=== PATIENT | female | born 1955 | race Caucasian/White ===

== ENCOUNTER 2018-03-02 01:03 | Outpatient (CLI) | payer OTHER, SELFPAY ==
--- NOTE | 2018-03-02 08:17 | DI.MAMMO_ITS ---
SYMPTOMS/DIAGNOSIS: SCREENING, Z12.31 MAMMOGRAM: Mammograms were interpreted according to the usual protocol including computer analysis with CAD system, tomosynthesis and C view imaging. The breast tissue is heterogeneously radiodense, which lowers the sensitivity of the study. There is no dominant mass. There are no suspicious calcifications and there has been no significant interval change when compared with prior images. SUMMARY: No evidence of malignancy, category 1. Yearly screening mammography is recommended. Breast density category C. MQSA ASSESSMENT OF FINDINGS: Negative. Category 1. Patient will receive a letter notifying them of these results. Bi-RADS category C. The breasts are heterogeneously dense, which may obscure small masses.
== END 2018-03-02 01:23 ==
PROVIDERS: PCP Family Medicine; Visit Provider Nurse Practitioner Women's Health
DX: Z12.31 Encounter for screening mammogram for malignant neoplasm of breast (principal)
CPT/HCPCS: 77063; 77067

== ENCOUNTER 2018-10-24 15:44 | Outpatient (REF) | payer BC, SELFPAY ==
--- NOTE | 2018-10-24 15:37 | LIPBX_PTH ---
PATIENT: Micheline Gentile LOC: [facility] U#:[id number] AGE/SX: 63/F ROOM: RE10/24/[address]: Robbin Santiago DO : 1955 BED: DIS: 10/24/2018 SPEC #: [id number] RECD: 10/25/18 12:30 STATUS: GOPI REQ #: [id number] DIONY: 10/24/18 15:[address]: Robbin Santiago DEPT: Surgical Specimen RECD BY: Jaimee Chaparro ENTERED: 10/25/18 12:31 SP TYPE: LIPBX OTHR DR: Ruddy Dorsey MD Tissues: 1 - LIP BIOPSY/RESECTION Procedures: GROSS AND MICRO LEVEL 4 Comments: [id number]
== END 2018-10-24 16:04 ==
LOC: LBN 15:44
PROVIDERS: PCP Family Medicine; Visit Provider Otolaryngology Otolaryngology/Facial Plastic Surgery
DX: L57.0 Actinic keratosis (principal)
CPT/HCPCS: 88305

== ENCOUNTER 2019-05-10 15:06 | Outpatient (REF) | payer BC, SELFPAY | END 2019-05-10 15:26 | LOC: LBN 15:06 | PROVIDERS: PCP Family Medicine; Visit Provider Nurse Practitioner Women's Health | DX: R31.9 Hematuria, unspecified (principal); R10.30 Lower abdominal pain, unspecified | CPT/HCPCS: 87086 ==

== ENCOUNTER 2019-05-11 01:37 | Outpatient (CLI) | payer BC, SELFPAY ==
--- NOTE | 2019-05-11 07:36 | DI.US_ITS ---
EXAM: US PELVIS TRANSVAGINAL CLINICAL HISTORY: lower abdominal pain AND PELVIC AND PERINEAL PAIN,R10.2 TECHNIQUE: Ultrasound performed using standard protocol. Transabdominal and transvaginal exams wer e performed. COMPARISON: No exams were available for comparison FINDINGS: The patient is status post hysterectomy. The transabdominal images are limited by lack of bladder d istention. The kidneys are unremarkable. The ovaries were unable to be visualized. There is no kellee ss evidence of a mass. No free fluid is seen. IMPRESSION: Normal appearing kidneys. The bladder was not well distended and was not evaluated. The ovaries wer e not visualized.
== END 2019-05-11 01:57 ==
PROVIDERS: PCP Family Medicine; Visit Provider Nurse Practitioner Women's Health
DX: R10.2 Pelvic and perineal pain (principal); R10.31 Right lower quadrant pain
CPT/HCPCS: 76830; 76856

== ENCOUNTER 2019-07-28 09:37 | Outpatient (CLI) | payer BC, SELFPAY ==
[2019-07-28 12:00] LABS: ALT 42 U/L (14-59); AST 30 U/L (15-37); Albumin 3.9 g/dL (3.4-5.0); Alkaline Phosphatase 63 U/L (46-116); Anion Gap 7.9 mmol/L (3-11); BUN 16 mg/dL (7-18); Bilirubin, Total 0.4 mg/dL (0.2-1.0); CO2 31.1 mmol/L (21.0-32.0); CREATININE 0.78 mg/dL (0.55-1.02); Calcium 9.1 mg/dL (8.5-10.1); Calculated LDL 142 mg/dL (<100); Chloride 103 mmol/L (98-107); Cholesterol 231 mg/dL (<200); Glucose 95 mg/dL (74-106); HDL Cholesterol 58 mg/dL (40-60); Potassium 4.3 mmol/L (3.5-5.1); Sodium 142 mmol/L (136-145); Total Protein 6.9 g/dL (6.4-8.2); Triglyceride 159 mg/dL (<150)
[2019-07-28 12:11] LABS: Hemoglobin A1C 5.8 % (3.8-5.6)
== END 2019-07-28 09:57 ==
PROVIDERS: PCP Family Medicine; Visit Provider Nurse Practitioner
DX: Z13.6 Encounter for screening for cardiovascular disorders (principal); R61 Generalized hyperhidrosis; Z13.1 Encounter for screening for diabetes mellitus
CPT/HCPCS: 36415; 80053; 80061; 83036

== ENCOUNTER 2020-03-18 13:05 | Outpatient (CLI) | payer BC, SELFPAY ==
[2020-03-20 02:05] LABS: Patient Race White; SARS-CoV-2 RNA Undetected (Undetected); SARS-CoV-2 Specimen Source Nasopharynx
== END 2020-03-18 13:25 ==
PROVIDERS: PCP Family Medicine; Visit Provider Family Medicine
DX: R50.9 Fever, unspecified (principal)
CPT/HCPCS: U0003

== ENCOUNTER 2020-06-12 05:06 | Outpatient (CLI) | payer BC, SELFPAY ==
[2020-06-12 11:17] LABS: ALT 34 U/L (14-59); AST 26 U/L (15-37); Albumin 4.3 g/dL (3.4-5.0); Alkaline Phosphatase 58 U/L (46-116); Anion Gap 9.6 mmol/L (3-11); BUN 17 mg/dL (7-18); Bilirubin, Total 0.6 mg/dL (0.2-1.0); CO2 28.4 mmol/L (21.0-32.0); CREATININE 0.82 mg/dL (0.55-1.02); Calcium 9.4 mg/dL (8.5-10.1); Chloride 104 mmol/L (98-107); Glucose 103 mg/dL (74-106); Potassium 4.1 mmol/L (3.5-5.1); Sodium 142 mmol/L (136-145); Total Protein 7.3 g/dL (6.4-8.2)
[2020-06-12 11:39] LABS: FREE T4 0.84 ng/dL (0.76-1.46)
== END 2020-06-12 05:26 ==
PROVIDERS: PCP Family Medicine
DX: R61 Generalized hyperhidrosis (principal); G47.00 Insomnia, unspecified
CPT/HCPCS: 36415; 80053; 84439; 84443

== ENCOUNTER 2020-08-19 03:08 | Outpatient (CLI) | payer BC, SELFPAY ==
[2020-08-19 10:16] LABS: TSH (W/Ref FT4) 2.57 uIU/mL (0.36-3.74)
== END 2020-08-19 03:09 | disposition home or self-care (01) ==
LOC: LBO 03:08
PROVIDERS: PCP Family Medicine
DX: E03.9 Hypothyroidism, unspecified (principal)
CPT/HCPCS: 36415; 84443

== ENCOUNTER 2020-08-30 15:19 | Outpatient (REF) | payer BC, SELFPAY ==
[2020-08-30 16:32] LABS: Creatinine,Urine 39.06 mg/dL
[2020-08-30 16:34] LABS: Total Volume 2335 ml
[2020-09-09 08:49] LABS: 5-Hydroxyindoleacetic Acid, U 4.2 mg/24 h (<=8.4); Urine Volume 2335 mL
== END 2020-08-30 15:20 | disposition home or self-care (01) ==
LOC: LBN 15:19
PROVIDERS: PCP Family Medicine; Visit Provider Student in an Organized Health Care Education/Training Program
DX: R61 Generalized hyperhidrosis (principal)
CPT/HCPCS: 81050; 82570; 83497

== ENCOUNTER 2020-10-17 09:56 | Outpatient (CLI) | payer BC, SELFPAY ==
--- NOTE | 2020-10-17 10:25 | DI.MAMMO_ITS ---
Exam(s) MAMMO SCREENING EXAM: MAMMO SCREENING CLINICAL HISTORY: screening. TECHNIQUE: Bilateral full field digital CC and MLO mammographic images were obtained with 3D tomosyn thesis and utilizing computer aided detection (CAD). COMPARISON: Prior mammograms dating back to 2010, the most recent being February 2018. FINDINGS: Fibroglandular tissue pattern is dense, this decreasing the sensitivity mammogram for finding in unde rlying lesions. In the right breast there is an asymmetric density slightly medial of center located approximately 3 cm in from the nipple, measuring approximately 1.2 by 1.0 cm on the CC view. Spot compression view u ltrasound recommended. This appears slightly sys spiculated. In the posterior aspect of the opposite-left breast there is an asymmetric density located 7 cm in fr om the nipple, this somewhat equivocal on 3D imaging and evident on prior studies. There are no onur gnant-appearing microcalcification groups in this region or elsewhere in either breast There is no significant architectural distortion nor skin thickening-retraction. IMPRESSION: Moderately dense fibroglandular tissue. Asymmetric density in the right breast as described above wh ich requires further spot compression views and ultrasound rule out ominous nodule at this level. BI-RADS Category 0 - Assessment Incomplete: Need additional imaging evaluation Breast Density - Category C - Heterogeneously dense Breast density Category C or D implies that the patient has dense breast tissue. Dense breast tissue can make it harder to find cancer on a mammogram. Dense breast tissue is also associated with an incr eased risk of breast cancer. This information about the result of the mammogram report was provided to the patient to raise their awareness. Use this report when you speak with the patient about their risks for breast cancer, which includes their family history. At that time, you may recommend additional screening tests (Ultrasoun d or MRI) as these tests may add significant information. A negative radiographic report should not delay biopsy if a dominant or clinically suspicious mass is present. Up to ten percent of cancers are not identified on mammography. A negative report may reinforce clinical impression. Adenosis and dense breasts may obscure an underlying neoplasm. False positive reports average 6 to 10%. Patient will receive a letter notifying them of these results.
== END 2020-10-17 10:16 ==
PROVIDERS: PCP Family Medicine; Visit Provider Nurse Practitioner Family
DX: Z12.31 Encounter for screening mammogram for malignant neoplasm of breast (principal); R92.8 Other abnormal and inconclusive findings on diagnostic imaging of breast
CPT/HCPCS: 77063; 77067

== ENCOUNTER 2020-10-24 01:56 | Outpatient (CLI) | payer BC, SELFPAY ==
--- NOTE | 2020-10-24 14:36 | DI.MAMMO_ITS ---
Exam(s) MG MAMMO SCREEN CALL BACK UNI US BREAST RT COMPLETE EXAM: MG MAMMO SCREEN CALL BACK UNI-RIGHT ALSO COMPLETE RIGHT BREAST ULTRASOUND CLINICAL HISTORY: F/U ABNL RT MAMMO, ASYMMETRIC DENSITY 3 CM FROM NIPPLE ON CC VIEW. TECHNIQUE: Unilateral spot mammographic images were obtained with 3D tomosynthesis and utilizing [place] [employer] puter aided detection (CAD). . Complete right breast Ultrasound was also performed. ALL 4 QUADRANTS WERE SCANNED WELL THE RET ROAREOLAR REGION AND RIGHT AXILLA COMPARISON: Prior mammograms were reviewed. This additional imaging was performed due to findings described on the recent screening mammogram of 10/17/2020. FINDINGS: Additional mammographic views performed todayrender this area less concerning. Ultrasound performed today reveals no evidence of solid or significant cystic lesions in all 4 quadra nts. At the 3 o'clock position there is a slightly prominent duct with no evidence of mass or inspis sated material therein. Scanning of the right axilla reveals a small benign lymph nodes. No significant adenopathy. IMPRESSION: No radiographic evidence of malignancy in the right breast. Appropriate follow-up is repeat right breast mammogram in 3 months. The patient was informed of these findings and recommendations by myself prior to leaving the departm ent today. BI-RADS Category 3 - 3 month - Probably Benign Finding: Recommend follow-up mammography in 3 months Breast Density - Category C - Heterogeneously dense Breast density Category C or D implies that the patient has dense breast tissue. Dense breast tissue can make it harder to find cancer on a mammogram. Dense breast tissue is also associated with an incr eased risk of breast cancer. This information about the result of the mammogram report was provided to the patient to raise their awareness. Use this report when you speak with the patient about their risks for breast cancer, which includes their family history. At that time, you may recommend additional screening tests (Ultrasoun d or MRI) as these tests may add significant information. A negative radiographic report should not delay biopsy if a dominant or clinically suspicious mass is present. Up to ten percent of cancers are not identified on mammography. A negative report may reinforce clinical impression. Adenosis and dense breasts may obscure an underlying neoplasm. False positive reports average 6 to 10%. Patient will receive a letter notifying them of these results.
== END 2020-10-24 02:16 ==
PROVIDERS: PCP Family Medicine; Visit Provider Nurse Practitioner Family
DX: Z12.31 Encounter for screening mammogram for malignant neoplasm of breast (principal); R92.8 Other abnormal and inconclusive findings on diagnostic imaging of breast; N60.41 Mammary duct ectasia of right breast
CPT/HCPCS: 76642; 77063; 77067

== ENCOUNTER 2020-11-19 00:44 | Outpatient (CLI) | payer BC, SELFPAY ==
--- NOTE | 2020-11-19 15:00 | DI.RAD_ITS ---
Exam(s) XR KNEE RT 3V AP,LAT,EDENILSON EXAM: XR KNEE RT 3V AP,LAT,EDENILSON CLINICAL HISTORY: RT KNEE PAIN,M25.561. TECHNIQUE: 2D digital imaging was performed. COMPARISON: No exams were available for comparison FINDINGS: BONES: No acute fracture is present. No bony destructive lesion is seen. JOINTS: The knee is normally aligned. No joint effusion is seen. SOFT TISSUE: Normal. IMPRESSION: Unremarkable radiographs of the right knee. DATA REPOSITORY: RADIATION DOSE DELIVERED:
== END 2020-11-19 01:04 ==
PROVIDERS: Visit Provider Nurse Practitioner Family
DX: M25.562 Pain in left knee; G89.29 Other chronic pain
CPT/HCPCS: 73562

== ENCOUNTER 2020-11-19 02:48 | Outpatient (CLI) | payer BC, SELFPAY ==
[2020-11-19 15:53] LABS: TSH (W/Ref FT4) 2.93 uIU/mL (0.36-3.74)
[2020-11-21 01:14] LABS: Vitamin D 25 Total 36.8 ng/mL (30-100)
== END 2020-11-19 02:49 | disposition home or self-care (01) ==
LOC: LBO 02:48
PROVIDERS: Visit Provider Nurse Practitioner Family
DX: E55.9 Vitamin D deficiency, unspecified (principal); E03.9 Hypothyroidism, unspecified
CPT/HCPCS: 36415; 82306; 84443

== ENCOUNTER 2021-01-28 03:15 | Outpatient (CLI) | payer BC, SELFPAY ==
--- NOTE | 2021-01-28 | DI.MAMMO_ITS ---
Exam(s) MAMMO DIAGNOSTIC UNI EXAM: MAMMO DIAGNOSTIC UNI CLINICAL HISTORY: F/U 3 MO F/U, R92.8. TECHNIQUE: Craniocaudal and mediolateral oblique Full Field Digital Mammography views of the right b reast with Computer Aided Diagnosis followed by Tomosynthesis. COMPARISON: 2010 through the recent exam of October 25 FINDINGS: Mammography/Tomosynthesis: Masses/Architectural Distortion: None seen. Previously questioned area of asymmetry in the medial rig ht breast is not present on the previous exam. Findings are consistent with overlying tissue. Microcalcifictions: No suspicious pleomorphic-type are seen. Skin Thickening/Nipple Retraction: None. IMPRESSION: 1. No evidence of malignancy is noted. 2. Unless there is more urgent need, follow-up screening mammography is recommended, as per [place] [employer] guidelines. BI-RADS Category 1 - Negative Breast Density - Category C - Heterogeneously dense Breast density category C or D implies that the patient has dense breast tissue. Dense breast tissue is very common and is not abnormal but dense breast tissue can make it harder to find cancer on a ma mmogram. Also, dense breast tissue may increase their breast cancer risk. This information about the result of the mammogram report was provided to the patient to raise their awareness. Use this report when you speak with the patient about their risks for breast cancer, which includes their family hist ory. At that time, you may recommend for more screening tests (Ultrasound or MRI) as they might be us eful based on their risk. A negative radiographic report should not delay biopsy if a dominant or clinically suspicious mass is present. Up to ten percent of cancers are not identified on mammography. A negative report may reinforce clinical impression. Adenosis and dense breasts may obscure an underlying neoplasm. False positive reports average 6 to 10%. Patient will receive a letter notifying them of these results.
== END 2021-01-28 03:35 ==
PROVIDERS: Visit Provider Nurse Practitioner Family
DX: R92.8 Other abnormal and inconclusive findings on diagnostic imaging of breast (principal)
CPT/HCPCS: 77061; 77065; G0279

== ENCOUNTER 2021-02-19 01:35 | Outpatient (CLI) | payer BC, SELFPAY ==
--- NOTE | 2021-02-19 07:45 | DI.MRI_ITS ---
Exam(s) MR LOWER JOINT RT WO EXAM: MR LOWER JOINT RT WO CLINICAL HISTORY: Pain ?meniscus tear, M25.561, G89.29. TECHNIQUE: Multiplanar multisequence MRI was performed. COMPARISON: CR XR KNEE RT 3V AP,LAT,EDENILSON from 11/19/2020 CR XR KNEE RT 3V AP,LAT,EDENILSON from 11/19/2020 FINDINGS: BONES: There is no fracture or contusion pattern. Mild subcortical edema in the medial femoral condyl e medial tibial plateau. JOINTS: Articular cartilage is unremarkable. There is a small amount of fluid in the joint space. TENDONS: Extensor mechanism: Unremarkable. Medial retinaculum: Unremarkable. Lateral retinaculum: Unremarkable. Popliteus: Unremarkable. MUSCLES: Unremarkable. MENISCI: There is a tear of the body of the medial meniscus. There also appears to be a tear at the posterior root of the medial meniscus. The lateral meniscus is unremarkable. SOFT TISSUES: Unremarkable. LIGAMENTS: Anterior Cruciate: There is some hyperintense signal seen in the distal aspect of the ACL which may r epresent a partial tear. Posterior Cruciate: Unremarkable. Medial Collateral:Unremarkable. Lateral Collateral: Unremarkable. OTHER: IMPRESSION: 1. Tear of the body and posterior root of the medial meniscus. 2. Findings suspicious for partial tear of the ACL. DATA REPOSITORY:
== END 2021-02-19 01:55 ==
PROVIDERS: Visit Provider Student in an Organized Health Care Education/Training Program
DX: G89.29 Other chronic pain (principal); M25.561 Pain in right knee; S83.241A Other tear of medial meniscus, current injury, right knee, initial encounter
CPT/HCPCS: 73721

== ENCOUNTER 2021-03-31 02:20 | Outpatient (CLI) | payer BC, SELFPAY ==
[2021-03-31 12:24] LABS: Source Nasal/Nares
[2021-03-31 21:45] LABS: COVID-19 PCR Negative (Negative)
== END 2021-03-31 02:21 | disposition home or self-care (01) ==
LOC: LBO 02:20
PROVIDERS: Visit Provider Student in an Organized Health Care Education/Training Program
DX: Z20.822 Contact with and (suspected) exposure to COVID-19 (principal); Z01.818 Encounter for other preprocedural examination
CPT/HCPCS: 87635

== ENCOUNTER 2021-04-02 11:32 | Day surgery (SDC) | payer BC, SELFPAY ==
[2021-04-02] VITALS (10 sets, daily range): BP systolic 101–148; BP diastolic 68–89; PULSE 61–72; RESP 10–23; TEMP 36.2–36.9; O2SAT 96–100; BMI 23.2
--- NOTE | 2021-04-02 10:30 | W.PM.DSUDISC ---
Documented by User: Hollie Crespo 04/02/21 10:53 Discharge Plan Disposition Patient Disposition: HOME Condition: Good Discharge Details Reason For Visit: Right knee medial meniscus tear Attending Provider: Erwin Canales Primary Care Provider: Amalia Healy Home Meds and New Rx's Prescriptions: New acetaminophen 500 mg tablet 500 mg PO Q6H PRN (Reason: pain) Qty: 60 RF: 2 ibuprofen 600 mg tablet 600 mg PO TID PRN (Reason: pain) Qty: 60 RF: 0 hydrocodone-acetaminophen 5-325 mg tablet 1 tab PO Q6H PRN (Reason: pain) Qty: 6 RF: 0 Continued Dialyvite Vitamin D3 Max 1,250 mcg (50,000 unit) tablet 1,250 mcg PO QWEEK RF: 0 estradiol [Estrace] 0.01 % (0.1 mg/gram) cream 1 g vaginal .COMPLEX Qty: 42.5 RF: 4 paroxetine HCl 10 mg tablet 10 mg PO DAILY Qty: 90 RF: 4 lorazepam 0.5 mg tablet 0.5 mg PO bid prn Qty: 90 RF: 1 Discharge Instructions Stand Alone Forms: [facility] Referrals: Erwin Canales MD [ [facility]] - Equipment/Supplies: Partial Weight Bearing Crutches Activity:: Elevate Remove Dressings/Wound Care:: 72 hours Shower/Bathe:: 72 hours Diet:: As Tolerated Discharge Orders Discharge Orders: Discharge Order (Routine); Ordered 04/02/21 Ordered By: Hollie Crespo DS: Diagnosis Discharge Diagnosis (1) Complex tear of medial meniscus of right knee: Status: Acute (2) Internal derangement of right knee: Status: Acute Documented by User: MADINA Casillas 04/02/21 14:10 Discharge Plan Disposition Patient Disposition: HOME Condition: Good Discharge Details Reason For Visit: Right knee medial meniscus tear Attending Provider: Erwin Canales Primary Care Provider: Amalia Healy Home Meds and New Rx's Prescriptions: New acetaminophen 500 mg tablet 500 mg PO Q6H PRN (Reason: pain) Qty: 60 RF: 2 ibuprofen 600 mg tablet 600 mg PO TID PRN (Reason: pain) Qty: 60 RF: 0 hydrocodone-acetaminophen 5-325 mg tablet 1 tab PO Q6H PRN (Reason: pain) Qty: 6 RF: 0 Continued Dialyvite Vitamin D3 Max 1,250 mcg (50,000 unit) tablet 1,250 mcg PO QWEEK RF: 0 estradiol [Estrace] 0.01 % (0.1 mg/gram) cream 1 g vaginal .COMPLEX Qty: 42.5 RF: 4 paroxetine HCl 10 mg tablet 10 mg PO DAILY Qty: 90 RF: 4 lorazepam 0.5 mg tablet 0.5 mg PO bid prn Qty: 90 RF: 1 Discharge Instructions Stand Alone Forms: [facility] Referrals: Erwin Canales MD [ [facility]] - Equipment/Supplies: Partial Weight Bearing Crutches Activity:: Elevate Remove Dressings/Wound Care:: 72 hours Shower/Bathe:: 72 hours Diet:: As Tolerated Discharge Orders Discharge Orders: Discharge Order (Routine); Ordered 04/02/21 Ordered By: Hollie Crespo
[2021-04-02] MEDS: Lactated Ringers 1,000 ML 80 ML IV (12:11)
--- NOTE | 2021-04-02 13:18 | ANES.PREOP_ITS ---
General Info Date of Service Date Performed: 04/02/21 Height: 5 ft Weight: 54 kg Body Mass Index (BMI): 23.2 Surgical Procedure: Operation Date: 04/02/21 14:10 Proposed Procedures Side Surgeon p KNEE arthroscopic partial medial menisectomy Right Erwin Canales MD Meds Allergies and Home Medications Allergies Allergy/AdvReac Type Severity Reaction Status Date / Time Sulfa (Sulfonamide Allergy Severe tongue/mouth Verified 04/02/21 11:48 Antibiotics) swell Penicillins Allergy Unknown Hives Verified 04/02/21 11:48 lactose AdvReac Severe Nausea Verified 04/02/21 11:48 Home Medication Medication Instructions Recorded cholecalciferol (vitamin D3) 1,250 1,250 mcg PO QWEEK 10/15/20 mcg (50,000 unit) tablet estradiol 1 g VAGINAL .COMPLEX #42.5 g 10/15/20 lorazepam 0.5 mg tablet 0.5 mg PO bid prn #90 tab-cap 11/13/20 paroxetine HCl 10 mg tablet 10 mg PO DAILY #90 tab-cap 11/13/20 acetaminophen 500 mg PO Q6H PRN #60 tab 04/02/21 ibuprofen 600 mg PO TID PRN #60 tab 04/02/21 Current Visit Medications: Current Medications Generic Name Dose Route Start Last Admin Trade Name Freq PRN Reason Stop Dose Admin Acetaminophen 650 mg 04/02/21 10:27 Acetaminophen 325 Mg Tab PO Q4H PRN PRN Hydrocodone Bitart/Acetaminophen 0 tab 04/02/21 10:27 Hydrocodone 5/Acetaminophen 325 Tab PO Q3H PRN PRN Pain Ringer's Solution 1,000 mls @ 80 mls/hr 04/02/21 06:00 04/02/21 12:11 IV 05/01/21 23:59 80 mls/hr INFUSION LOIS Administration Cefazolin Sodium/Dextrose 2 gm in 50 mls @ 100 mls/hr 04/02/21 06:00 Ancef Duplex IVPB 05/01/21 23:59 PREOP LOIS IV Miscellaneous Supplies 1 each 04/02/21 06:00 Iv Access IV 05/01/21 23:59 DIRECTED LOIS Sodium Chloride 0 ml 04/02/21 06:00 Normal Saline Flush 10 Ml Syr IV 05/01/21 23:59 PRN PRN Sodium Chloride 0 ml 04/02/21 06:00 Normal Saline 10 Ml Vial IJ 05/01/21 23:59 DIRECTED PRN Sterile Water 0 ml 04/02/21 06:00 Water,Injection,Sterile 10 Ml Vial IJ 05/01/21 23:59 DIRECTED PRN PFSH Active Problems Active Problems: Problem Status Onset Code Anxiety 12/31/12 F41.9 Atrophic vaginitis 06/03/12 N95.2 Dyspareunia 11/20/14 GERD (gastroesophageal reflux disease) K21.9 Ganglion cyst 10/04/17 M67.40 Headache associated with orgasm 09/30/15 G44.82 Hip pain 07/17/14 M25.559 History of osteomyelitis 10/04/17 Z87.39 Migraine without aura and without status migrainosus, not intractable 09/30/15 G43.009 Neoplasm of unspecified nature of bone, soft tissue, and skin 02/22/17 D49.2 Polyp of colon 12/31/12 K63.5 Postural orthostatic tachycardia syndrome 09/30/15 R00.0, I95.1 Night sweats R61 Vitamin D deficiency E55.9 Right knee pain M25.561 Internal derangement of right knee M23.91 Complex tear of medial meniscus of right knee S83.231A Hypothyroidism E03.9 Excessive sweating R61 Chronic diarrhea K52.9 Medical History Medical History Adenomatous colon polyp Anxiety Atrophic vaginitis Chronic diarrhea Dyspareunia in female Excessive sweating GERD (gastroesophageal reflux disease) Hip pain Hypothyroidism Migraine headache without aura Postural orthostatic tachycardia syndrome Per pt. states I get very light headed when I go from sitting to standing, any change of position I get very very dizzy Surgical History Surgical History Abdominal hysterectomy Thinks 1994. Colonoscopy - MAC (06/29/17) Tobacco Smoking/Tobacco Use Status: Never Alcohol Alcohol Intake: current Alcohol intake frequency: a few times a week Alcohol type: wine Substance Use Substance use: Occasionally Substance use type: does not use Prental History History 4 Para 2 Hx # Term Pregnancies Multiple births Hx # Pregnancies Ectopic pregnancies AB induced Hx Number of Living Children AB spontaneous Vital Signs and Lab Results Vital Signs Most Recent Vital Signs in EMR: Most Recent Vital Signs Temp Pulse Resp BP Pulse Ox 36.4 C L 61 16 132/82 99 04/02/21 11:54 04/02/21 11:54 04/02/21 11:54 04/02/21 11:54 04/02/21 11:54 Lab Results Blood Type / Crossmatch: No Data to Display Complete Blood Count: No Data to Display Complete Metabolic Panel: No Data to Display Liver Function Panel: No Data to Display Coagulation Panel: No Data to Display Cardiac Panel: No Data to Display Arterial Blood Gas: No Data to Display Venous Blood Gas: 2 No Data to Display Pancreas Panel: No Data to Display Thyroid Panel: No Data to Display Infectious Disease: Coronavirus (COVID-19)(PCR) Negative (Negative) 03/31/21 11:07 03/31/21 Coronavirus 2019 Source Nasal/Nares 03/31/21 11:07 03/31/21 Blood Cultures: No Data to Display Toxicology Panel: No Data to Display Anesthesia Assessment and Plan Anesthesia History Personal History: No History of Anesthesia Complications Family History: No Family History of Anesthesia Complications Exercise Tolerance Exercise Tolerance: Metabolic Equivalents>4 Pertinent Negatives Pertinent Negatives: No Symptoms of GERD, No Major Cardiovascular Symptoms or Complaints, No Major Pulmonary Symptoms or Complaints and No History of CVA/TIA Cardiac & Pulmonary Exam Cardiac Exam: Normal S1/S2 Heart Sounds Pulmonary Exam: Clear Bilateral Breath Sounds Airway Exam Known Difficult Airway: No Mallampati Class: 1 Mouth Opening: Normal (> 3cm) Thyromental Distance: Greater than 3 cm Neck Range of Motion: Full ROM Neck Circumference: Normal Teeth Condition: Normal Dentition Airway Comments: #12 ?fake? ASA Classification ASA Score: ASA 2 Emergency Case?: No NPO Status NPO Status: NPO Clears >2 hours, Solids >8 hours Anesthesia Plan Resuscitation Status: Full Code Anesthesia Technique: General Anesthesia Airway Planned: LMA Monitors Used: Standard Monitors
--- NOTE | 2021-04-02 13:49 | W.PREOPHP ---
Date of service: 04/02/21 Time of Service: 13:49 Assessment and Plan Assessment and plan (1) Complex tear of medial meniscus of right knee: Status: Acute Qualifiers: Tear current or old: current Encounter type: subsequent encounter Qualified Code(s): S83.231D - Complex tear of medial meniscus, current injury, right knee, subsequent encounter (2) Internal derangement of right knee: Status: Acute Assessment and plan: Micheline is a 65 year old female with known meniscus tears of the right knee. She has feailed conservative/nonopertive treatments and desires to proceed with knee arthroscopy with meniscal intervention. I reveiwed the risks of the procedure to include bleeding, infection, pain, stiffness, retear, worsening arthritis, and blood clot. Despite these risks, she elects to proceed. History of Present Illness History of Present Illness Chief Complaint: Right knee pain Narrative: Micheline is a 65 year old female with continued right knee pain with diagnosed medial meniscus tears. She was seen in the clinic and desired to proceed with knee arthroscopy after failure of nonoperative treatments. Review of Systems All systems reviewed & are unremarkable except as noted in HPI and below PFSH Medical History Adenomatous colon polyp Anxiety Atrophic vaginitis Chronic diarrhea Dyspareunia in female Excessive sweating GERD (gastroesophageal reflux disease) Hip pain Hypothyroidism Migraine headache without aura Postural orthostatic tachycardia syndrome Per pt. states I get very light headed when I go from sitting to standing, any change of position I get very very dizzy Surgical History Abdominal hysterectomy Thinks 1994. Colonoscopy - MAC (06/29/17) Family History Father Hypertension Hyperlipidemia Heart disease Mother Hyperlipidemia Hypertension Brother Diabetes Type 1 Social History Smoking/Tobacco Use Status: Never Smoking risk assessment performed?: Yes Alcohol Intake: current Alcohol Intake frequency: a few times a week Alcohol type: wine Drug use: Occasionally Substance use type: does not use Do you feel safe at home: Yes Do you feel safe in your relationship?: Yes Female Reproductive History Menstrual Menopause type: surgical History History 4 Para 2 Hx # Term Pregnancies Multiple births Hx # Pregnancies Ectopic pregnancies AB induced Hx Number of Living Children AB spontaneous Meds Allergies and Home Medications Allergies Allergy/AdvReac Type Severity Reaction Status Date / Time Sulfa (Sulfonamide Allergy Severe tongue/mouth Verified 04/02/21 11:48 Antibiotics) swell Penicillins Allergy Unknown Hives Verified 04/02/21 11:48 lactose AdvReac Severe Nausea Verified 04/02/21 11:48 Home Medications Medication Instructions Recorded Confirmed Type cholecalciferol (vitamin D3) 1,250 1,250 mcg PO QWEEK 10/15/20 04/02/21 History mcg (50,000 unit) tablet estradiol 1 g VAGINAL .COMPLEX #42.5 g 10/15/20 04/02/21 Rx lorazepam 0.5 mg tablet 0.5 mg PO bid prn #90 tab-cap 11/13/20 04/02/21 Rx paroxetine HCl 10 mg tablet 10 mg PO DAILY #90 tab-cap 11/13/20 04/02/21 Rx acetaminophen 500 mg PO Q6H PRN #60 tab 04/02/21 Rx ibuprofen 600 mg PO TID PRN #60 tab 04/02/21 Rx Exam Resp Effort & Inspection: normal respiratory effort Auscultation: clear to auscultation bilaterally Cardio Rate: regular rate Rhythm: regular rhythm Results Last Vital Signs Temp 36.4 C L 04/02/21 11:54 Pulse 61 04/02/21 11:54 Resp 16 04/02/21 11:54 BP 132/82 04/02/21 11:54 Pulse Ox 99 04/02/21 11:54
[2021-04-02] MEDS: ceFAZolin 2 GM/50 ML BAG IVPB (13:55)
[2021-04-02] MEDS: Bupivacaine 0.5% Pres-Free 30 ML VIAL (14:16)
--- NOTE | 2021-04-02 15:28 | W.ANESPOSTOP ---
Postoperative Evaluation Date, Time and Location Date Performed: 04/02/21 Time Performed: 15:28 Patient Location: PACU Vital Signs Most Recent Imported Vital Signs: Most Recent Vital Signs Temp Pulse Resp BP Pulse Ox 36.2 C L 68 23 137/89 100 04/02/21 15:25 04/02/21 15:25 04/02/21 15:25 04/02/21 15:25 04/02/21 15:25 Pain Score Most Recent Pain Score: Most Recent Pain Score Pain Level 0 04/02/21 15:25 Assessment Mental Status: Awake (Alert & Oriented to Patient Baseline) Airway and Respiratory Function: Patent airway with normal (patient baseline) respiratory exam Cardiovascular Function: Hemodynamically Stable Hydration Status: Adequately Hydrated Nausea & Vomiting: No Nausea or Vomiting Pain: Pain is tolerable per patient Peripheral Nerve Block: Patient did not receive a nerve block
[2021-04-02] MEDS: fentaNYL 100 MCG/2 ML VIAL IVP ×2 (15:39→15:55)
[2021-04-02] MEDS: HYDROcodone 5/Acetaminophen 325 TAB PO (16:44)
--- NOTE | 2021-04-02 21:54 | ROE_ITS ---
Date of service: 04/02/21 Time of Service: 14:57 Operative Note Operative Note DATE OF PROCEDURE: 04/02/21 PRE-OP DIAGNOSIS: Right Knee Media Meniscus Tear POST-OP DIAGNOSIS: same PROCEDURE: Right Knee Arthrosopic Partial Medial menisectom SURGEON: Erwin Canales Refer to Anesthesia Record ESTIMATED BLOOD LOSS: 0 PATHOLOGY: none sent COMPLICATIONS: None Patient was transported to: PACU Patient's condition: stable Indications: I have seen Micheline in clinic for symptoms of a meniscus tear. This was confirmed based on MRI and exam findings. Nonoperative measures were exhausted but disability and pain persisted. I discussed knee arthroscopy with meniscal intervention with the patient. I reviewed the risks of the procedure to include, but not limited to, bleeding, infection, pain, stiffness, damage to nerves or vessels, recurrence, blood clot. Despite these risks, the patient elected to proceed. Findings: A diagnostic arthroscopy was performed with the following findings: Suprapatellar Pouch: No significant inflammation, No loose bodies Medial Compartment: Complex medial meniscal tear involving the anterior body and posterior horn, Radial tear disconnecting the majority of the body from the root, Grade II chondromalacia of the femur, No loose bodies Notch: ACL and PCL were intact Lateral Compartment: No meniscal tear, Intact meniscal root, No significant chondromalacia or signs of arthritis, No loose bodies Patellofemoral Compartment: No significant chondromalacia, No apparent patellar maltracking Procedure Description: Micheline was greeted in the preoperative holding area where the correct side was identified and marked. The consent was reviewed with the patient and signed. The history and physical was updated. All questions were answered. She was taken back to the operating room. The patient was placed into the supine position on the operating room table. A nonsterile tourniquet was placed high onto the leg but not used. All bony prominences were well padded. Prophylactic antibiotics in the form of Cefazolin were administered. The right leg was then prepped with Chloraprep and draped in a standard fashion with stockinette and extremity drape. A timeout to confirm correct identity, side and site, procedure, allergies, anesthesia, and medical concerns was performed. The leg was placed into a pneumatic leg nova, SPIDER2. A standard lateral portal was made at the lateral border of the patella tendon in line with the inferior pole of the patella, soft spot. The skin and deep tissue was incised sharply and the blunt trochar was inserted atraumatically. A diagnostic arthroscopy was performed and the findings are listed above. The suprapatellar pouch had no significant inflammatory change. The patellofemoral articulation showed no articular damage as well as good tracking. The lateral gutter had no loose bodies and the medial gutter had no loose bodies. The knee was brought into some valgus stress in extension to open the medial compartment. A medial portal was made, localized by a spinal needle. The portal was created with an #11 blade through skin and capsule under direct visualization avoiding any meniscal injury. A probe was then inserted into the medial compartment. The medial compartment was fully inspected. The chondral surface of the tibia showed no significant chondromalacia and the surface of the femur showed Grade II chondromalacia. The medial meniscus had a complex tear in two primary locations. Anteriorly, there was complex tearing of the superior aspect of the anterior body. Posteriorly, there was a chronic appearing radial tear just medial to the root which disconnected the majority of the posterior medial meniscus from the root. There were still some peripheral fibers intact and the posterior horn/body of the medial meniscus was stable. In the posterior horn/brigitte dy there was a complex tear with multiple loose fragments and a significant horizontal tear. After evaluation, the meniscus was debrided down to a stable base using a series of biters and arthroscopic cheryl. It was probed afterwards to confirm that the tear had been removed and the meniscus was stable. The notch was then inspected which showed an intact ACL and an intact PCL. The leg was then brought into a figure of 4 position. The lateral compartment was fully inspected with the arthroscope and a probe. The chondral surface of the lateral femur showed no significant chondromalacia. The chondral surface of the lateral tibia showed no significant chondromalacia. The lateral meniscus had no meniscal tear. The arthroscope was brought back into the suprapatellar pouch and the leg was in full extension. The knee was thoroughly irrigated with the arthroscopic fluid on high flow and pressure. Inflow was stopped and excess fluid was removed. The wounds were closed with 4-0 Nylon. They were dressed with Xeroform, 4x4 gauze, ABD pad, Kerlix and an LUH wrap. A cryo-cuff was applied. The patient tolerated the procedure well and was returned to the Same Day Surgery area in a stable condition suffering no known complication.
== END 2021-04-02 17:35 | disposition home or self-care (01) ==
LOC: SUR 11:32
PROVIDERS: Visit Provider Student in an Organized Health Care Education/Training Program
PROC: (CPT 29870; principal; 2021-04-02 14:00)
DX: M23.231 Derangement of other medial meniscus due to old tear or injury, right knee (principal); E55.9 Vitamin D deficiency, unspecified; K21.9 Gastro-esophageal reflux disease without esophagitis; E03.9 Hypothyroidism, unspecified
CPT/HCPCS: 29881; J0690; J1100; J2001; J2405; J2704; J3010

== ENCOUNTER 2021-05-14 02:09 | Outpatient (CLI) | payer BC, SELFPAY ==
[2021-05-14 10:52] LABS: ALT 32 U/L (14-59); AST 23 U/L (15-37); Alkaline Phosphatase 61 U/L (46-116); BUN 14 mg/dL (7-18); CREATININE 0.8 mg/dL (0.55-1.02); Calcium 8.9 mg/dL (8.5-10.1); Calculated LDL 154 mg/dL (<100); Chloride 104 mmol/L (98-107); Cholesterol 242 mg/dL (<200); Glucose 98 mg/dL (74-106); HDL Cholesterol 74 mg/dL (40-60); Potassium 4.3 mmol/L (3.5-5.1); Sodium 142 mmol/L (136-145); TSH (W/Ref FT4) 2.43 uIU/mL (0.36-3.74); Total Protein 6.8 g/dL (6.4-8.2); Triglyceride 72 mg/dL (<150)
[2021-05-14 11:04] LABS: Bilirubin, Total 0.3 mg/dL (0.2-1.0)
== END 2021-05-14 02:10 | disposition home or self-care (01) ==
LOC: LBO 02:10
DX: Z13.220 Encounter for screening for lipoid disorders (principal); G47.00 Insomnia, unspecified; R61 Generalized hyperhidrosis; Z00.00 Encounter for general adult medical examination without abnormal findings
CPT/HCPCS: 36415; 80053; 80061; 84443

== ENCOUNTER 2021-12-24 16:29 | Outpatient (REF) | payer BC, SELFPAY | END 2021-12-24 16:30 | disposition home or self-care (01) | LOC: LBN 16:29 | PROVIDERS: Visit Provider Physician Assistant | DX: J02.9 Acute pharyngitis, unspecified (principal) | CPT/HCPCS: 87070 ==

== ENCOUNTER → 2022-04-06 01:55 | Outpatient (CLI) | payer BC, SELFPAY ==
--- NOTE | 2022-04-06 07:45 | DI.MAMMO_ITS ---
Exam(s) MAMMO SCREENING EXAM: MAMMO SCREENING CLINICAL HISTORY: screening,z12.39 TECHNIQUE: Mammograms were interpreted according to the usual protocol including computer analysis w [employer] CAD system, tomosynthesis and C-view imaging. COMPARISON: 2012 through 2020 FINDINGS: The breasts are composed of heterogeneously dense fibroglandular densities, Breast Density category C . No suspicious masses or suspicious microcalcifications are seen. No skin thickening or abnormal axillary lymph nodes are seen. There has been no significant change from prior exams. IMPRESSION: BI-RADS Category 1, Negative mammogram. Yearly screening mammography is recommended. Breast Density Category C, heterogeneously Dense. The mammogram demonstrates the patient's breast tissue is dense. Dense breast tissue is very common a nd is not abnormal but dense breast tissue can make it harder to find cancer on a mammogram. Also, de nse breast tissue may increase breast cancer risk. This information about the result of the mammogram report was provided to the patient to raise their awareness. Use this report when you speak with the patient about their risks for breast cancer, which includes their family history. At that time, you may recommend additional screening tests (Ultrasound or MRI) as they might be useful based on their r isk. A negative radiographic report should not delay biopsy if a dominant or clinically suspicious mass is present. Up to ten percent of cancers are not identified on mammography. A negative report may reinforce clinical impression. Adenosis and dense breasts may obscure an underlying neoplasm. False positive reports average 6 to 10%.
== END ==
PROVIDERS: Visit Provider Nurse Practitioner Women's Health
DX: Z12.31 Encounter for screening mammogram for malignant neoplasm of breast (principal)
CPT/HCPCS: 77063; 77067

== ENCOUNTER 2022-06-26 13:20 | Outpatient (CLI) | payer BC, SELFPAY ==
--- NOTE | 2022-06-26 13:15 | RT.EKG_ITS ---
APPROVED REPORT Exam: Resting ECG Reason for Exam: syncope Patient Location: O HR:64 bpm ECG Measurements Heart Rate 64 AXIS AL 138 P 74 QRSd 82 QRS 30 QT 405 T 56 QTc 418 Conclusion Sinus rhythm...normal P axis, V-rate 50- 99 Normal Electrocardiogram
== END 2022-06-26 13:21 | disposition home or self-care (01) ==
LOC: DI.CM 13:22
PROVIDERS: PCP Nurse Practitioner Family; Visit Provider Nurse Practitioner Family
DX: R55 Syncope and collapse (principal)
CPT/HCPCS: 93010

== ENCOUNTER 2022-06-30 03:26 | Outpatient (CLI) | payer BC, SELFPAY ==
[2022-06-30 12:31] LABS: HCT 43.2 % (36.0-46.0); MCH 29.6 pg (27.0-33.0); MCHC 32.4 % (32.0-36.0); MCV 91 fL (80-95); MPV 9.8 fL (8.0-11.0); Platelet Count 261 10^3/uL (130-400); RBC 4.73 10^6/uL (3.93-5.22); RDW 12.4 % (11.7-14.6); RDW-SD 41.8 fL; WBC 4.69 10^3/uL (4.4-10.8)
[2022-06-30 12:54] LABS: ALT 33 U/L (14-59); AST 28 U/L (15-37); Albumin 3.9 g/dL (3.4-5.0); Alkaline Phosphatase 57 U/L (46-116); Anion Gap 2.8 mmol/L (3-11); BUN 15 mg/dL (7-18); Bilirubin, Total 0.4 mg/dL (0.2-1.0); CO2 33.2 mmol/L (21.0-32.0); CREATININE 0.8 mg/dL (0.55-1.02); Calcium 8.9 mg/dL (8.5-10.1); Calculated LDL 105 mg/dL (<100); Chloride 102 mmol/L (98-107); Cholesterol 206 mg/dL (<200); Estimated GFR 82.23 (mL/min/1.73m2); Glucose 101 mg/dL (74-106); HDL Cholesterol 81 mg/dL (40-60); Potassium 3.9 mmol/L (3.5-5.1); Sodium 138 mmol/L (136-145); TSH (W/Ref FT4) 4.03 uIU/mL (0.36-3.74); Total Protein 6.9 g/dL (6.4-8.2); Triglyceride 103 mg/dL (<150)
[2022-06-30 13:16] LABS: FREE T4 0.75 ng/dL (0.76-1.46)
== END 2022-06-30 03:27 | disposition home or self-care (01) ==
LOC: LOS 03:26
PROVIDERS: PCP Nurse Practitioner Family; Visit Provider Nurse Practitioner Family
DX: E78.5 Hyperlipidemia, unspecified (principal); E03.9 Hypothyroidism, unspecified; R53.83 Other fatigue; K52.9 Noninfective gastroenteritis and colitis, unspecified
CPT/HCPCS: 36415; 80053; 80061; 85027; 84439; 84443

== ENCOUNTER 2022-07-09 09:28 | Outpatient (RCR) | payer BC, SELFPAY ==
--- NOTE | 2022-07-09 09:30 | HOLTER_ITS ---
APPROVED REPORT Conclusion This is a 48-hour Holter monitor Rhythm throughout was sinus with an average heart rate of 69. Minimum was 56, maximum 105 There were no atrial or ventricular dysrhythmias There was no high-grade AV block, no pauses greater than 3 seconds
== END 2022-08-04 23:59 | disposition home or self-care (01) ==
LOC: CARDOPNVT 09:28
PROVIDERS: PCP Nurse Practitioner Family
DX: R55 Syncope and collapse (principal)
CPT/HCPCS: 93227; 93225; 93226

== ENCOUNTER 2022-09-14 07:16 | Day surgery (SDC) | payer BC, SELFPAY ==
[2022-09-14 07:20] VITALS: BP 114/81; PULSE 86; RESP 16; TEMP 36.6; O2SAT 99
[2022-09-14] MEDS: Lactated Ringers 1,000 ML 80 ML IV (07:52)
--- NOTE | 2022-09-14 08:04 | W.SURGCON ---
Date of service: 09/14/22 Time of Service: 08:09 Assessment and Plan Assessment and plan (1) Polyp of colon: Status: Acute Assessment and plan: 66-year-old woman without symptoms due for surveillance colonoscopy. Epigastric discomfort likely related to reflux disease but could be peptic ulcer disease. Plan: Colonoscopy and EGD History of Present Illness Narrative: 66-year-old woman is here for colonoscopy and EGD For the last 3 to 4 months she has been experiencing episodic epigastric discomfort. It is a burning sensation and related to eating. She started a PPI a few months ago and says that has helped a lot. She had an EGD done about 20 years ago or so but is uncertain of what the results were. She does not know of any esophagus or stomach cancer history in the family. Her last colonoscopy was 5 years ago. She has had polyps removed in the past and at least one of them has been tubulovillous histology. There is a family history of colon cancer in an isolated grandmother. Her father currently has prostate cancer. She is not having any symptoms. She does occasionally have diarrhea on an occasion but this is not daily and this is nothing new and is not a change. Surgical history: Hysterectomy and C-sections PFSH All Active Problems Family history of colon cancer in father (Acute) Irritable bowel syndrome with diarrhea (Acute) Anxiety (Acute 12/31/12) Atrophic vaginitis (Acute 06/03/12) Dyspareunia (Acute 11/20/14) GERD (gastroesophageal reflux disease) (Acute) Headache associated with orgasm (Acute 09/30/15) Hip pain (Acute 07/17/14) [facility] History of osteomyelitis (Acute 10/04/17) Migraine without aura and without status migrainosus, not intractable (Acute 09/30/15) Neoplasm of unspecified nature of bone, soft tissue, and skin (Acute 02/22/17) Polyp of colon (Acute 12/31/12) November 2012 tubulovillous adenoma ([place]) 06/29/17 - reoeat 5 years Postural orthostatic tachycardia syndrome (Acute 09/30/15) Chronic diarrhea (Acute) Night sweats (Acute) Excessive sweating (Acute) Hypothyroidism (Chronic) Vitamin D deficiency (Acute) Complex tear of medial meniscus of right knee (Acute) S/P R knee arthroscopy with partial medial menisectomy: 04/02/2021 Ganglion cyst of finger (Acute) Excision 09/09/21 - Dr. Shamar Morales Back strain (Acute) COVID-19 (Acute) Onset: 03/21/22 Fully vacinated-two boosters COVID-19 (Acute ~03/20/22) Fatigue (Acute) Hyperlipidemia (Acute) Syncope and collapse (Acute) Medical History Adenomatous colon polyp Anxiety Atrophic vaginitis Dyspareunia in female GERD (gastroesophageal reflux disease) Hip pain Migraine headache without aura Postural orthostatic tachycardia syndrome Per pt. states I get very light headed when I go from sitting to standing, any change of position I get very very dizzy Surgical History Abdominal hysterectomy Thinks 1994. Colonoscopy - MAC (06/29/17) Family History Father Hypertension Hyperlipidemia Heart disease FH: prostate cancer Diabetes Depression Mother Hyperlipidemia Hypertension Anxiety Brother Diabetes Type 1 Alcohol use disorder Depression Sister Diabetes Heart disease Hyperlipidemia Hypertension Sister Anxiety Depression Son Tourette syndrome Daughter Anxiety Social History (Updated 07/01/22 @ 17:24 by Shelia Mayorga) Smoking/Tobacco Use Status: Never Second Hand Exposure: Yes Smoking risk assessment performed?: Yes Alcohol Intake: current Alcohol Intake frequency: holidays/special occasions only Alcohol type: wine Drug use: Occasionally Substance use type: marijuana Caregiver/Support person: No Household members: spouse Housing: house Communication Needs: None Do you need help understanding health information?: Never Pets and animals: No Sexually active: Yes Do you think of yourself as: straight/heterosexual Current gender identity: female What is your relationship status?: How often do you talk on the phone with friends or family?: three or more times per week How often do you get together with friends or relatives?: twice per week How often do you attend shinto or lutheran services?: decline to answer Do you belong to any clubs or organized social groups?: decline to answer Panel score (0-1 are the most socially isolated patients): 2 What type of physical activity do you participate in: walking Duration: 30-45 minutes/day Frequency: 5-6 times per week Shannan/Samaritan: No preference Special shannan needs: No Seatbelt use: always Helmet use: Yes Helmet use: always Drive intox or ride w/intox driver license reviewing officer: No Do you feel safe at home: Yes Do you feel safe in your relationship?: Yes Female Reproductive History Menstrual Menopause type: surgical History History 4 Para 2 Hx # Term Pregnancies Multiple births Hx # Pregnancies Ectopic pregnancies AB induced Hx Number of Living Children AB spontaneous Exam Narrative Exam Narrative: General: Nontoxic and comfortable Neuro: Alert and oriented x3 Psych: Appropriate mood and affect, good insight and understanding Chest: Nonlabored breathing and no wheezing Heart: Regular Results Last Vital Signs Temp 97.9 F 09/14/22 07:20 Pulse 86 09/14/22 07:20 Resp 16 09/14/22 07:20 BP 114/81 09/14/22 07:20 Pulse Ox 99 09/14/22 07:20
--- NOTE | 2022-09-14 08:05 | W.ANESPRE ---
General Info Date of Service Date Performed: 09/14/22 Height: 5 ft Weight: 51.7 kg Body Mass Index (BMI): 22.2 Surgical Procedure: Operation Date: 09/14/22 08:20 Proposed Procedure Side Surgeon p Colonoscopy/Gastroscopy possible Polypectomy Ludwin Moon MD Meds Allergies and Home Medications Allergies Allergy/AdvReac Type Severity Reaction Status Date / Time Sulfa (Sulfonamide Allergy Severe tongue/mouth Verified 09/14/22 07:25 Antibiotics) swell Penicillins Allergy Unknown Hives Verified 09/14/22 07:25 lactose AdvReac Severe Nausea Verified 09/14/22 07:25 Home Medication Medication Instructions Recorded cholecalciferol (vitamin D3) 1,250 1,250 mcg PO QWEEK 10/15/20 mcg (50,000 unit) tablet (Dialyvite Vitamin D3 Max) estradiol 10 mcg vaginal tablet 10 mcg vaginal DAILY 2 weeks #24 04/24/21 (Vagifem) tabs lorazepam 0.5 mg tablet 0.5 mg PO bid prn #90 tab-caps 04/20/22 lovastatin 10 mg tablet 10 mg PO QPM #90 tabs 06/11/22 paroxetine HCl 10 mg tablet See Rx Instructions .Route 06/17/22 .COMPLEX #90 tabs omeprazole 20 mg capsule,delayed 20 mg PO DAILY #90 caps 06/26/22 release bisacodyl 5 mg tablet,delayed 5 mg PO ONCE colonscopy bowel prep 07/30/22 release (Dulcolax (bisacodyl)) #4 tabs polyethylene glycol 3350 17 238 g PO ONCE colonoscopy prep 07/30/22 gram/dose oral powder #238 grams Current Visit Medications: Current Medications Generic Name Dose Route Start Last Admin Trade Name Freq PRN Reason Stop Dose Admin Ringer's Solution 1,000 mls @ 80 mls/hr 09/14/22 06:00 09/14/22 07:52 IV 10/11/22 23:59 80 mls/hr INFUSION LOIS Administration IV Miscellaneous Supplies 1 each 09/14/22 06:00 Iv Access IV 10/11/22 23:59 DIRECTED LOIS Sodium Chloride 0 ml 09/14/22 06:00 Normal Saline Flush 10 Ml Syr IV 10/11/22 23:59 PRN PRN Sodium Chloride 0 ml 09/14/22 06:00 Normal Saline 10 Ml Vial IJ 10/11/22 23:59 DIRECTED PRN Sterile Water 0 ml 09/14/22 06:00 Water,Injection,Sterile 10 Ml Vial IJ 10/11/22 23:59 DIRECTED PRN PFSH Active Problems Active Problems: Problem Status Onset Code Family history of colon cancer in father Z80.0 Irritable bowel syndrome with diarrhea K58.0 Anxiety 12/31/12 F41.9 Atrophic vaginitis 06/03/12 N95.2 Dyspareunia 11/20/14 GERD (gastroesophageal reflux disease) K21.9 Headache associated with orgasm 09/30/15 G44.82 Hip pain 07/17/14 M25.559 History of osteomyelitis 10/04/17 Z87.39 Migraine without aura and without status migrainosus, not intractable 09/30/15 G43.009 Neoplasm of unspecified nature of bone, soft tissue, and skin 02/22/17 D49.2 Polyp of colon 12/31/12 K63.5 Postural orthostatic tachycardia syndrome 09/30/15 R00.0, I95.1 Chronic diarrhea K52.9 Night sweats R61 Excessive sweating R61 Hypothyroidism E03.9 Vitamin D deficiency E55.9 Complex tear of medial meniscus of right knee S83.231A Ganglion cyst of finger M67.449 Back strain S39.012A COVID-19 U07.1 COVID-19 ~03/20/22 U07.1 Fatigue R53.83 Hyperlipidemia E78.5 Syncope and collapse R55 Medical History Medical History Adenomatous colon polyp Anxiety Atrophic vaginitis Dyspareunia in female GERD (gastroesophageal reflux disease) Hip pain Migraine headache without aura Postural orthostatic tachycardia syndrome Per pt. states I get very light headed when I go from sitting to standing, any change of position I get very very dizzy Surgical History Surgical History Abdominal hysterectomy Thinks 1994. Colonoscopy - MAC (06/29/17) Tobacco Smoking/Tobacco Use Status: Never Passive smoking exposure: Yes Second hand exposure: Yes Alcohol Alcohol Intake: current Alcohol intake frequency: holidays/special occasions only Alcohol type: wine Substance Use Substance use: Occasionally Substance use type: marijuana Prental History History 4 Para 2 Hx # Term Pregnancies Multiple births Hx # Pregnancies Ectopic pregnancies AB induced Hx Number of Living Children AB spontaneous Vital Signs and Lab Results Vital Signs Most Recent Vital Signs in EMR: Most Recent Vital Signs Temp Pulse Resp BP Pulse Ox 36.6 C 86 16 114/81 99 09/14/22 07:20 09/14/22 07:20 09/14/22 07:20 09/14/22 07:20 09/14/22 07:20 Lab Results Blood Type / Crossmatch: No Data to Display Complete Blood Count: No Data to Display Complete Metabolic Panel: No Data to Display Liver Function Panel: No Data to Display Coagulation Panel: No Data to Display Cardiac Panel: No Data to Display Arterial Blood Gas: No Data to Display Venous Blood Gas: No Data to Display Pancreas Panel: No Data to Display Thyroid Panel: No Data to Display Infectious Disease: No Data to Display Blood Cultures: No Data to Display Toxicology Panel: No Data to Display Imaging and Studies Imaging and Studies Study information below may be from another EMR and interpreted by another provider. Please see original notes in EMR for more complete details. EKG Summary: 06/26/2022: Exam: Resting ECG Reason for Exam: syncope Patient Location: O HR:64 bpm ECG Measurements Heart Rate 64 AXIS KS 138 P 74 QRSd 82 QRS 30 QT 405 T56 QTc 418 Conclusion Sinus rhythm...normal P axis, V-rate 50- 99 Normal Electrocardiogram Anesthesia Assessment and Plan Anesthesia History Personal History: No History of Anesthesia Complications Family History: No Family History of Anesthesia Complications Exercise Tolerance Exercise Tolerance: Metabolic Equivalents>4 Pertinent Negatives Pertinent Negatives: No Symptoms of GERD, No Major Cardiovascular Symptoms or Complaints and No Major Pulmonary Symptoms or Complaints Cardiac & Pulmonary Exam Cardiac Exam: Normal S1/S2 Heart Sounds Pulmonary Exam: Clear Bilateral Breath Sounds Implantable Cardiac Device Does patient have a Pacemaker or an ICD?: No Airway Exam Known Difficult Airway: No Mallampati Class: 1 Mouth Opening: Normal (> 3cm) Thyromental Distance: Greater than 3 cm Neck Range of Motion: Full ROM Neck Circumference: Normal Teeth Condition: Normal Dentition Airway Comments: #12 ?fake? ASA Classification ASA Score: ASA 2 Emergency Case?: No NPO Status NPO Status: NPO Clears >2 hours, Solids >8 hours Anesthesia Plan Resuscitation Status: Full Code Anesthesia Technique: General Anesthesia Airway Planned: Natural Airway Monitors Used: Standard Monitors
[2022-09-14 08:08] VITALS: BMI 22.2
--- NOTE | 2022-09-14 08:20 | W.COLOREPORT ---
Date of service: 09/14/22 Time of Service: 08:20 Colonoscopy Report Procedure Description: Procedures performed: 1. Colonoscopy Preoperative diagnosis: Surveillance colonoscopy, colon polyps Postoperative diagnosis: Minimal sigmoid diverticulosis Surgeon: Mildred Moon Anesthesia: Margo Indication for procedure: Patient is a 66-year-old woman with a personal history of prior adenomatous polyps (some tubulovillous) on prior colonoscopies. She has no symptoms (chronic episodes of diarrhea on and off is not new for her) and she does not have a significant family history. (An isolated grandmother is not increased risk) Findings: The terminal ileum was normal. No new polyps were seen. A couple of scattered, minimal diverticular changes were noted in the sigmoid colon only. Surveillance/follow-up recommendations: Considering her history, that we found no new polyps today and that the colonoscopy before this did not have any polyps found, I recommend repeating her next colonoscopy in 7-10 years. Complications: None Blood loss: Minimal Specimens:?? YES Quality of Prep:?? Good Procedure in detail: Written consent was obtained from the patient who was in agreement with the risks, benefits and indications of the procedure.? She was turned from upper endoscopy (see separate procedure note) and kept in the same position and anesthesia was continued and I started the colonoscopy portion of the procedure. Digital rectal exam and visual examination was performed and within normal limits.? A well?lubricated colonoscope was advanced without difficulty all the way to the cecum identified by the ileocecal valve, and triangular folds and appendiceal orifice.? It was then slowly withdrawn.?? Retroflexion was performed in the rectum.? The findings/interventions are noted above. The scope was then removed and the patient tolerated the procedure well and was then taken back to the PACU in hemodynamically stable condition.
--- NOTE | 2022-09-14 08:22 | W.PM.ENDDOP ---
Date of service: 09/14/22 Time of Service: 08:22 Endoscopy Report PROCEDURE DESCRIPTION: Procedures performed: 1.? Esophagogastroduodenoscopy with cold forceps biopsies 2. Cold forceps polypectomy Preoperative diagnosis: GERD with esophagitis Postoperative diagnosis: Mild gastritis/gastropathy, gastric polyps Surgeon: Mildred Moon Anesthesia: Miri Indication for procedure: 66-year-old woman with epigastric pain that is episodic and related to eating. Findings: - D3, D2 and D1 - normal - no inflammation or ulcers. Cold forceps biopsies here x4 to rule out celiac disease considering her chronic on/off diarrhea history. - Pylorus - patent.? No bile reflux visualized during procedure. - Antrum - looks mildly inflamed and with chronic appeance - biopsies taken to rule out occult H. pylori - Stomach Body - chronic gastritis/gastropathy appearance.? Biopsies taken to confirm.? - Fundus -? A couple of small benign?appearing fundic polyps were seen. One was removed with cold forceps technique to confirm benign histology. - Hiatus - Retroflexion showed a normal?appearing hiatus - Esophagus - distal esophagus does not look inflamed.? No stricture or evidence of Scherer's.? Cold forceps biopsies were taken here to rule out reflux esophagitis though none is suspected visually. The mid and proximal esophagus was also normal. - Cords/hypopharynx - Normal OVERALL - mild/mild gastritis/gastropathy may be significantly improved since taking antacid medications and could be the explanation for the symptoms. Surveillance/follow-up recommendations: Pending biopsy results.?? Unlikely to be necessary.?? We will make sure H. pylori is not playing a role. Complications: None Blood loss: Minimal Specimens:? YES Procedure in detail: Written consent was obtained from the patient who was in agreement with the risks, benefits and indications of the procedure.? We went to the endoscopy suite and laid the patient in left lateral decubitus position.? Anesthesia was administered which was tolerated well.? A timeout was performed and when we are all in agreement we began the procedure. A well?lubricated endoscope was advanced without difficulty down the esophagus, into the stomach, through a patent pylorus and into the duodenum.? It was then slowly pulled back with findings noted above. The scope was then removed and the patient tolerated the procedure well and was then turned for the colonoscopy portion of the procedure (see separate procedure note)
--- NOTE | 2022-09-14 08:36 | STOM_PTH ---
PATIENT: Micheline Gentile LOC: [facility] U#:[id number] AGE/SX: 66/F ROOM: RE09/14/[address]: Ludwin Moon : 1955 BED: DIS: 09/14/2022 SPEC #: [id number] RECD: 09/14/22 12:37 STATUS: GOPI RE #: [id number] DIONY: 09/14/22 08:[address]: Ludwin Moon DEPT: Surgical Specimen RECD BY: Jaimee Chaparro ENTERED: 09/14/22 12:40 SP TYPE: STOMACH OTHR DR: Uche Howell DNP Tissues: 1 - BIOPSY BOWEL 2 - STOMACH BIOPSY 3 - STOMACH BIOPSY 4 - STOMACH BIOPSY 5 - ESOPHAGUS BIOPSY Procedures: GROSS AND MICRO LEVEL 4 Comments: [id number]
[2022-09-14 09:10] VITALS: BP 91/73; PULSE 80; RESP 14; TEMP 35.9; O2SAT 96
[2022-09-14 09:40] VITALS: BP 105/85; PULSE 75; RESP 16; TEMP 36; O2SAT 99
--- NOTE | 2022-09-14 09:55 | W.ANESPOSTOP ---
Postoperative Evaluation Date, Time and Location Date Performed: 09/14/22 Time Performed: 09:55 Patient Location: Day Surgery Unit Vital Signs Most Recent Imported Vital Signs: Most Recent Vital Signs Temp Pulse Resp BP Pulse Ox 35.9 C L 80 14 91/73 L 96 09/14/22 09:10 09/14/22 09:10 09/14/22 09:10 09/14/22 09:10 09/14/22 09:10 Pain Score Most Recent Pain Score: Most Recent Pain Score Pain Level 0 09/14/22 09:10 Assessment Mental Status: Awake (Alert & Oriented to Patient Baseline) Airway and Respiratory Function: Patent airway with normal (patient baseline) respiratory exam Cardiovascular Function: Hemodynamically Stable Hydration Status: Adequately Hydrated Nausea & Vomiting: No Nausea or Vomiting Pain: Pt. Denies Any Pain Peripheral Nerve Block: Patient did not receive a nerve block
[2022-09-14 10:14] VITALS: BP 110/78; PULSE 82; RESP 16; TEMP 36; O2SAT 99
== END 2022-09-14 10:25 | disposition home or self-care (01) ==
PROVIDERS: PCP Nurse Practitioner Family; Visit Provider Student in an Organized Health Care Education/Training Program
PROC: (CPT 45378; principal; 2022-09-14 08:15)
DX: Z12.11 Encounter for screening for malignant neoplasm of colon (principal); Z86.010 Personal history of colon polyps; K21.00 Gastro-esophageal reflux disease with esophagitis, without bleeding; K29.70 Gastritis, unspecified, without bleeding; K31.7 Polyp of stomach and duodenum; K57.30 Diverticulosis of large intestine without perforation or abscess without bleeding
CPT/HCPCS: 45378; 43239; 88305

== ENCOUNTER 2022-10-09 00:32 | Outpatient (CLI) | payer MEDICARE, SELFPAY ==
--- NOTE | 2022-10-09 | DI.US_ITS ---
APPROVED REPORT EXAM: Comprehensive 2D, Doppler, and color-flow Echocardiogram Patient Location: Out-Patient Typesetter Apprentice: Lea Schaeffer RDCS (AE) Indications: Syncope, Murmur Other Information Study Quality: Good Conclusion Normal left ventricular wall thickness and chamber size. Ejection fraction is 65%. Wall motion is n ormal Normal right ventricular size and systolic function Both atria are normal in size There are no structural valvular abnormalities Trace to mild mitral regurgitation Mild tricuspid regurgitation, estimated right ventricular systolic pressure is 22 mmHg Wall motion Left Ventricle The left ventricle is normal size. The left ventricular systolic function is normal. The left ventric ular ejection fraction is within the normal range. There is normal left ventricular wall thickness. T here is normal LV segmental wall motion. There is no ventricular septal defect visualized. LVEF is 65 %. Right Ventricle The right ventricle is normal size. The right ventricular systolic function is normal. Atria The left atrium size is normal. The right atrium size is normal. The interatrial septum is intact wit h no evidence for an atrial septal defect. Aortic Valve The aortic valve is normal in structure. There is no aortic valvular stenosis. No aortic regurgitatio n is present. Mitral Valve The mitral valve is normal in structure. No evidence of mitral valve stenosis. Trace to mild mitral regurgitation. Tricuspid Valve The tricuspid valve is normal in structure. There is no tricuspid valve stenosis. Mild tricuspid reg urgitation. Great Vessels The aortic root is normal in size. The ascending aorta is normal in size. Aortic arch is not well vis ualized. IVC is normal in size and collapses >50% with inspiration. Pericardium There is no pericardial effusion. 2D Dimensions IVSD d PLAX 0.81 cm F: 0.6-1.0 LV Vol A2C d MOD 63.4 mL LVPW d PLAX 0.81 cm F: 0.6 - 1.0 LV Vol A4C d MOD 66.4 mL LVID d PLAX 4.04 cm F: 3.8 - 5.2 LA vol/ BSA A2C s A-L 19.3 mL/m2 LVDs 2.60 cm F: 2.2 - 3.5 LA vol/ BSA A4C s A-L 21.8 mL/m2 Ao Root d 2.54 cm F: 2.7 - 3.3 LA Vol/ BSA Biplane s A-L 21.8 mL/m2 RA Area A4C 10.45 cm2 LA Area A4C s MOD 12.73 cm2 RA Vol/ BSA A4C s A-L 15.4 mL/m2 LA Area A2C s MOD 11.29 cm2 Ao Asc Diam d 2.86 cm F: 2.3 - 3.1 LV EF A4C MOD 65.5 % LV EF Teichholz 65.6 % LV EF A2C MOD 65.0 % LVEF (She[employer]'s) 65.04 % F: 54 - 74 LV EF Biplane MOD 65.0 % LV Volume 55.43 mL F: 46 - 106 SV 42.97 mL LV Volume Index 37.45 mL/m2 F: 29 - 61 SV Index 29.13 mL/m2 LV Vol Biplane MOD 66.1 mL FS 35.60 % M-Mode TAPSE 2.27 cm (M/F) >1.7 LV Diastology MV E' medial 0.064 (>0.07 m/s) E/A Ratio 0.8 LV E/e MED 10.10 (<14) MV E Vmax 0.64 (0.4-1.3 m/s) MV E' lateral 0.104 (>0.1 m/s) MV A Vmax 0.80 (0.4-1.3 m/s) LV E/e LAT 6.15 (<14) MV E/A Ratio 0.78 MV E/E' medial 10.11 MV E/E' lateral 6.18 Aortic Valve LVOT Area 2.75 cm2 AoV Area Vmax 2.37 cm2 LVOT Vmax 1.14 m/s AoV Area/ BSA (Vmax) 1.61 cm2/m2 LVOT Mean Randal. 0.77 m/s FIONA Mean Randal. 2.40 cm2 LVOT Peak Grad 5.2 mmHg FIONA Mean Randal. Index 1.63 cm2/m2 LVOT Mean Grad 2.7 mmHg LVOT VTI 0.242 m LVOT Diam s 1.85 cm AoV Vmax 1.32 m/s Velocity Ratio 0.86 AoV Mean Randal. 0.89 m/s AoV Peak Grad 7.0 mmHg LVOT SV 66.42 mL AoV Mean Grad 3.5 mmHg AoV VTI 0.246 m AoV Area VTI 2.70 cm2 AoV Area/ BSA (VTI) 1.83 cm/m2 Mitral Valve MV DT 272 (160-240 msec) MV PHT 79 msec MV Area PHT 2.79 cm2 Tricuspid Valve TR Peak Grad 19.0 mmHg TR Vmax 2.18 m/s RA Pressure 3.00 mmHg RVSP (TR) 22.0 mmHg
== END 2022-10-09 00:52 ==
LOC: DI 00:32
PROVIDERS: PCP Nurse Practitioner Family; Visit Provider Internal Medicine Cardiovascular Disease
DX: R55 Syncope and collapse (principal)
CPT/HCPCS: 93306

== ENCOUNTER → 2023-03-22 08:26 | Outpatient (BNVA) | payer MEDICARE, SELFPAY | PROVIDERS: PCP Nurse Practitioner Family; Referring Provider Nurse Practitioner Family; Visit Provider Student in an Organized Health Care Education/Training Program | DX: M65.4 Radial styloid tenosynovitis [de Quervain] (principal) | CPT/HCPCS: 20550; J1030 ==

== ENCOUNTER 2023-06-28 18:50 | Outpatient (REF) | payer MEDICARE, SELFPAY ==
[2023-06-28 21:59] LABS: HCT 44.5 % (36.0-46.0); HGB 14.7 g/dL (11.2-15.7); MCH 29.3 pg (27.0-33.0); MCV 89 fL (80-95); MPV 10.6 fL (8.0-11.0); Platelet Count 271 10^3/uL (130-400); RBC 5.02 10^6/uL (3.93-5.22); RDW 12.7 % (11.7-14.6); RDW-SD 41.6 fL; WBC 3.89 10^3/uL (4.4-10.8)
[2023-06-28 22:21] LABS: ALT 33 U/L (14-59); AST 29 U/L (15-37); Alkaline Phosphatase 45 U/L (46-116); Anion Gap 9.1 mmol/L (3-11); BUN 20 mg/dL (7-18); Bilirubin, Total 0.6 mg/dL (0.2-1.0); CO2 25.9 mmol/L (21.0-32.0); CREATININE 0.6 mg/dL (0.55-1.02); Calcium 9.4 mg/dL (8.5-10.1); Calculated LDL 119 mg/dL (<100); Chloride 104 mmol/L (98-107); Cholesterol 232 mg/dL (<200); Estimated GFR 99.55 (mL/min/1.73m2); Glucose 96 mg/dL (74-106); HDL Cholesterol 85 mg/dL (40-60); Potassium 4.7 mmol/L (3.5-5.1); Sodium 139 mmol/L (136-145); TSH (W/Ref FT4) 3.31 uIU/mL (0.36-3.74); Total Protein 7.1 g/dL (6.4-8.2); Triglyceride 141 mg/dL (<150)
== END 2023-06-28 18:51 | disposition home or self-care (01) ==
LOC: LBN 18:50
PROVIDERS: PCP Nurse Practitioner Family; Visit Provider Nurse Practitioner Family
DX: E78.5 Hyperlipidemia, unspecified (principal); E55.9 Vitamin D deficiency, unspecified; R53.83 Other fatigue
CPT/HCPCS: 80053; 80061; 82306; 85027; 82384; 84443

== ENCOUNTER → 2023-07-05 01:53 | Outpatient (CLI) | payer MEDICARE, SELFPAY ==
--- NOTE | 2023-07-05 07:00 | DI.MAMMO_ITS ---
Exam(s) MAMMO SCREENING EXAM: MAMMO SCREENING CLINICAL HISTORY: screening,Z12.39 TECHNIQUE: Bilateral full field digital CC and MLO mammographic images were obtained with 3D tomosyn thesis and utilizing computer aided detection (CAD). COMPARISON: Available for comparison. FINDINGS: Masses/Architectural Distortion: None seen. Microcalcifications: No suspicious pleomorphic-type are seen. Skin Thickening/Nipple Retraction: None. IMPRESSION: 1. No significant interval change with no specific features of malignancy noted. 2. Unless there is more urgent need, screening mammography is recommended, as per [employer] guidelines. BI-RADS Category 1 - Negative Breast Density - Category C - Heterogeneously dense Breast density category C or D implies that the patient has dense breast tissue. Dense breast tissue is very common and is not abnormal but dense breast tissue can make it harder to find cancer on a ma mmogram. Also, dense breast tissue may increase their breast cancer risk. This information about the result of the mammogram report was provided to the patient to raise their awareness. Use this report when you speak with the patient about their risks for breast cancer, which includes their family hist ory. At that time, you may recommend for more screening tests (Ultrasound or MRI) as they might be us eful based on their risk. A negative radiographic report should not delay biopsy if a dominant or clinically suspicious mass is present. Up to ten percent of cancers are not identified on mammography. A negative report may reinforce clinical impression. Adenosis and dense breasts may obscure an underlying neoplasm. False positive reports average 6 to 10%. Patient will receive a letter notifying them of these results.
--- NOTE | 2023-07-05 07:00 | DI.RAD_ITS ---
Exam(s) XR HIP RT COMPLETE AP PELVIS EXAM: XR HIP RT COMPLETE AP PELVIS CLINICAL HISTORY: increased pain with outward rotation,m25.551. TECHNIQUE: 2D digital imaging was performed of the right hip. Two images were obtained. AP pelvis a nd lateral right hip views were obtained. COMPARISON: No exams were available for comparison FINDINGS: BONES: No acute fracture is present. No bony destructive lesion is seen. JOINTS: No dislocation present. The joint spaces are well maintained as are the sacroiliac joints and symphysis pubis. SOFT TISSUE: Normal. IMPRESSION: Unremarkable radiographs of the right hip. Unremarkable radiographs of the pelvis. DATA REPOSITORY: RADIATION DOSE DELIVERED:
== END ==
PROVIDERS: PCP Nurse Practitioner Family; Visit Provider Nurse Practitioner Family
DX: E55.9 Vitamin D deficiency, unspecified (principal); Z12.31 Encounter for screening mammogram for malignant neoplasm of breast; M25.551 Pain in right hip
CPT/HCPCS: 77063; 77067; 73502

== ENCOUNTER 2023-07-05 18:13 | Outpatient (REF) | payer MEDICARE, SELFPAY ==
[2023-07-07 23:23] LABS: Metanephrines, U 46 mcg/24 h; Normetanephrine, U 197 mcg/24 h; Total Metanephrines, U 243 mcg/24 h; Urine Volume 1200 mL
== END 2023-07-05 18:14 | disposition home or self-care (01) ==
LOC: LBN 18:13
PROVIDERS: PCP Nurse Practitioner Family; Visit Provider Nurse Practitioner Family
DX: R23.2 Flushing (principal)
CPT/HCPCS: 81050; 83835

== ENCOUNTER → 2023-07-09 01:15 | Outpatient (CLI) | payer MEDICARE, SELFPAY ==
--- NOTE | 2023-07-09 13:50 | DI.DEXA_ITS ---
Exam(s) XR DEXA BONE DENSITY W/WO STEPHEN EXAM: XR DEXA BONE DENSITY W/WO STEPHEN CLINICAL HISTORY: screening for osteoporosis in postmenopausal woman,z78.0,vit d deficient TECHNIQUE: Routine DEXA evaluation of the lumbar spine, hip, or forearm. COMPARISON: No exams were available for comparison FINDINGS: Performed on a Hologic unit. Lateral image: No compression fracture evident. Lumbar Spine total T-score: -1.2 Hip total T-score:-0.8 Independent reading at the level of the femoral neck yields T-score of -1.2 Forearm total T-score: -0.9 IMPRESSION: Bone mineral density measures in the osteopenia range. Fracture risk is moderate. Note: Any spine fracture indicates 5x risk for subsequent spine fracture and 2x risk for subsequent h ip fracture. World Health Organization criteria for BMD interpretation classify patients: Normal...... T- Score at or above -1.0 Osteopenic... T- Score between -1.0 and -2.5 Osteoporosis... T-Score at or below -2.5
== END ==
PROVIDERS: PCP Nurse Practitioner Family; Visit Provider Nurse Practitioner Family
DX: E55.9 Vitamin D deficiency, unspecified (principal); Z78.0 Asymptomatic menopausal state; Z13.820 Encounter for screening for osteoporosis; M85.88 Other specified disorders of bone density and structure, other site
CPT/HCPCS: 77080

== ENCOUNTER 2024-01-06 11:42 | Outpatient (CLI) | payer MEDICARE, SELFPAY ==
--- NOTE | 2024-01-06 10:45 | DI.RAD_ITS ---
Exam(s) XR WRIST RT COMPLETE EXAM: XR WRIST RT COMPLETE CLINICAL HISTORY: wrist pain. TECHNIQUE: 2D digital imaging was performed. Three views. COMPARISON: CR RIGHT INDEX FINGER from 10/06/2017 FINDINGS: BONES: The bones are normally mineralized. No acute fracture is present. Erosion of the ulnar stylo id. No additional erosions. Chronic small bony density again noted near the trapezium. JOINTS: The carpal bones are normally aligned. Mild degenerative changes at 1st carpal metacarpal j oint. SOFT TISSUE: Normal. IMPRESSION: Bony erosion of the ulnar styloid. No additional erosions. The findings could indicate rheumatoid a rthritis but is nonspecific. DATA REPOSITORY: RADIATION DOSE DELIVERED:
== END 2024-01-06 11:43 | disposition home or self-care (01) ==
LOC: DIORS 11:42
PROVIDERS: PCP Nurse Practitioner Family; Referring Provider Nurse Practitioner Family; Visit Provider Student in an Organized Health Care Education/Training Program
DX: M65.4 Radial styloid tenosynovitis [de Quervain]
CPT/HCPCS: 99213; 73110

== ENCOUNTER 2024-01-19 09:58 | Day surgery (SDC) | payer MEDICARE, SELFPAY ==
[2024-01-19] VITALS (15 sets, daily range): BP systolic 83–127; BP diastolic 29–86; PULSE 65–87; RESP 8–21; TEMP 35.8–36.6; O2SAT 94–100; BMI 22.4
[2024-01-19] MEDS: Lactated Ringers 1,000 ML 80 ML IV (10:27)
--- NOTE | 2024-01-19 11:12 | W.ANESPRE ---
General Info Date of Service Date Performed: 01/19/24 Height: 5 ft Weight: 52.1 kg Body Mass Index (BMI): 22.4 Surgical Procedure: Operation Date: 01/19/24 12:10 Proposed Procedure Side Surgeon p Wrist Dequervains Release Right Erwin Canales MD Actual Procedure Side Surgeon p Wrist Dequervains Release Right Erwin Canales MD Meds Allergies and Home Medications Allergies Allergy/AdvReac Type Severity Reaction Status Date / Time Sulfa (Sulfonamide Allergy Severe tongue/mouth Verified 01/19/24 10:14 Antibiotics) swell Penicillins Allergy Unknown Hives Verified 01/19/24 10:14 lactose AdvReac Severe Nausea Verified 01/19/24 10:14 Home Medication ?Medication ?Instructions ?Recorded cholecalciferol (vitamin D3) 1,250 1,250 mcg PO QWEEK 10/15/20 mcg (50,000 unit) tablet (Dialyvite Vitamin D3 Max) lorazepam 0.5 mg tablet 0.5 mg PO bid prn #90 tab-caps 06/24/23 lovastatin 10 mg tablet 10 mg PO QPM #90 tabs 06/24/23 paroxetine HCl 10 mg tablet See Rx Instructions .Route 06/24/23 .COMPLEX #90 tabs estradiol 10 mcg vaginal tablet 10 mcg vaginal DAILY 2 weeks #24 07/27/23 (Vagifem) tabs estradiol 0.01% (0.1 mg/gram) 0.25 g vaginal .2-3x weekly #42.5 07/29/23 vaginal cream grams multivitamin 1 tab PO DAILY 01/17/24 Current Visit Medications: Current Medications Generic Name Dose Route Start Last Admin Trade Name Lauro PRN Reason Stop Dose Admin Ringer's Solution 1,000 mls @ 80 mls/hr 01/19/24 06:00 01/19/24 10:27 IV 01/19/24 23:59 80 mls/hr INFUSION LOIS Administration Cefazolin Sodium/Dextrose 2 gm in 50 mls @ 100 mls/hr 01/19/24 06:00 Ancef Duplex IVPB 01/19/24 23:59 PREOP LOIS IV Miscellaneous Supplies 1 each 01/19/24 06:00 Iv Access IV 01/19/24 23:59 DIRECTED LOIS Sodium Chloride 0 ml 01/19/24 06:00 Normal Saline Flush 10 Ml Syr IV 01/19/24 23:59 PRN PRN Sodium Chloride 0 ml 01/19/24 06:00 Normal Saline 10 Ml Vial IJ 01/19/24 23:59 DIRECTED PRN Sterile Water 0 ml 01/19/24 06:00 Water,Injection,Sterile 10 Ml Vial IJ 01/19/24 23:59 DIRECTED PRN PFSH Active Problems Active Problems: Problem Status Onset Code Hot flashes due to menopause Acute N95.1 Right hip pain Acute M25.551 Pain of left thumb Acute M79.645 De Quervain's tenosynovitis, right Acute M65.4 Right leg pain Acute M79.604 Irritable bowel syndrome with diarrhea Acute K58.0 Hyperlipidemia Acute E78.5 Back strain Acute S39.012A Ganglion cyst of finger Acute M67.449 Complex tear of medial meniscus of right knee Acute S83.231A Vitamin D deficiency Acute E55.9 Hypothyroidism Chronic E03.9 Chronic diarrhea Acute K52.9 Polyp of colon Acute 12/31/12 K63.5 Neoplasm of unspecified nature of bone, soft tissue, and skin Acute 02/22/17 D49.2 History of osteomyelitis Acute 10/04/17 Z87.39 Hip pain Acute 07/17/14 M25.559 Dyspareunia Acute 11/20/14 Atrophic vaginitis Acute 06/03/12 N95.2 Anxiety Acute 12/31/12 F41.9 Medical History Medical History Family history of colon cancer in father COVID-19 Onset: 03/21/22 Fully vacinated-two boosters GERD (gastroesophageal reflux disease) Postural orthostatic tachycardia syndrome Per pt. states I get very light headed when I go from sitting to standing, any change of position I get very very dizzy Anxiety Migraine headache without aura Medical History Comments:: Orthostatic Hypotension Surgical History Surgical History Abdominal hysterectomy Thinks 1994. Ovaries left in place Colonoscopy - MAC (09/14/22) 06/29/2017 Tobacco Smoking/Tobacco Use Status: Never Passive smoking exposure: Yes Second hand exposure: Yes Alcohol Alcohol Intake: current Alcohol intake frequency: holidays/special occasions only Alcohol type: wine Substance Use Substance use: Daily Substance use type: marijuana Prental History History 4 Para 2 Hx # Term Pregnancies Multiple births Hx # Pregnancies Ectopic pregnancies AB induced Hx Number of Living Children AB spontaneous Vital Signs and Lab Results Vital Signs Most Recent Vital Signs in EMR: Most Recent Vital Signs Temp Pulse Resp BP Pulse Ox 36.2 C L 74 16 115/75 97 01/19/24 10:00 01/19/24 10:00 01/19/24 10:00 01/19/24 10:00 01/19/24 10:00 Lab Results Blood Type / Crossmatch: No Data to Display Complete Blood Count: No Data to Display Complete Metabolic Panel: No Data to Display Liver Function Panel: No Data to Display Coagulation Panel: No Data to Display Cardiac Panel: No Data to Display Arterial Blood Gas: No Data to Display Venous Blood Gas: No Data to Display Pancreas Panel: No Data to Display Thyroid Panel: No Data to Display Infectious Disease: No Data to Display Blood Cultures: No Data to Display Toxicology Panel: No Data to Display Imaging and Studies Imaging and Studies Study information below may be from another EMR and interpreted by another provider. Please see original notes in EMR for more complete details. EKG Summary: 06/26/2022: Exam: Resting ECG Reason for Exam: syncope Patient Location: O HR:64 bpm ECG Measurements Heart Rate 64 AXIS AZ 138 P 74 QRSd 82 QRS 30 QT 405 T56 QTc 418 Conclusion Sinus rhythm...normal P axis, V-rate 50- 99 Normal Electrocardiogram Echocardiogram Summary: Patient Name: Micheline Gentile Unit #: [id number] Loc: Ordering Provider: Suresh Montenegro Status: REG CLI Primary Care Provider: Uche Merritt NP Date of Exam: 10/09/22 Sex: F Admission Date: 10/09/22 : 1955 Age: 66 APPROVED REPORT EXAM: Comprehensive 2D, Doppler, and color-flow Echocardiogram Patient Location: Out-Patient Program Engagement Director: Lea Schaeffer RDCS (AE) Indications: Syncope, Murmur Other Information Study Quality: Good Conclusion Normal left ventricular wall thickness and chamber size. Ejection fraction is 65%. Wall motion is normal Normal right ventricular size and systolic function Both atria are normal in size There are no structural valvular abnormalities Trace to mild mitral regurgitation Mild tricuspid regurgitation, estimated right ventricular systolic pressure is 22 mmHg Wall motion Left Ventricle The left ventricle is normal size. The left ventricular systolic function is normal. The left ventricular ejection fraction is within the normal range. There is normal left ventricular wall thickness. There is normal LV segmental wall motion. There is no ventricular septal defect visualized. LVEF is 65%. Right Ventricle The right ventricle is normal size. The right ventricular systolic function is normal. Atria The left atrium size is normal. The right atrium size is normal. The interatrial septum is intact with no evidence for an atrial septal defect. Aortic Valve The aortic valve is normal in structure. There is no aortic valvular stenosis. No aortic regurgitation is present. Mitral Valve The mitral valve is normal in structure. No evidence of mitral valve stenosis. Trace to mild mitral regurgitation. Tricuspid Valve The tricuspid valve is normal in structure. There is no tricuspid valve stenosis. Mild tricuspid regurgitation. Great Vessels The aortic root is normal in size. The ascending aorta is normal in size. Aortic arch is not well visualized. IVC is normal in size and collapses >50% with inspiration. Pericardium There is no pericardial effusion. 2D Dimensions IVSD d PLAX 0.81 cm F: 0.6-1.0LV Vol A2C d MOD 63.4 mL LVPW d PLAX 0.81 cm F: 0.6 - 1.0LV Vol A4C d MOD 66.4 mL LVID d PLAX 4.04 cm F: 3.8 - 5.2LA vol/ BSA A2C s A-L19.3 mL/m2 LVDs 2.60 cm F: 2.2 - 3.5LA vol/ BSA A4C s A-L21.8 mL/m2 Ao Root d 2.54 cm F: 2.7 - 3.3LA Vol/ BSA Biplane s A-L 21.8 mL/m2 RA Area A4C10.45 cm2LA Area A4C s MOD 12.73 cm2 RA Vol/ BSA A4C s A-L 15.4 mL/m2LA Area A2C s MOD 11.29 cm2 Ao Asc Diam d 2.86 cm F: 2.3 - 3.1LV EF A4C MOD 65.5 % LV EF Teichholz 65.6 %LV EF A2C MOD 65.0 % LVEF ([place]'s)65.04 % F: 54 - 74LV EF Biplane MOD 65.0 % LV Usjjlg87.43 mL F: 46 - 488PE78.97 mL LV Volume Index37.45 mL/m2 F: 29 - 61SV Index29.13 mL/m2 LV Vol Biplane MOD 66.1 mL FS35.60 % M-Mode TAPSE 2.27 cm (M/F) >1.7 LV Diastology MV E' medial0.064 (>0.07 m/s)E/A Ratio 0.8 LV E/e MED10.10 (<14)MV E Vmax 0.64 (0.4-1.3 m/s) MV E' lateral0.104 (>0.1 m/s)MV A Vmax 0.80 (0.4-1.3 m/s) LV E/e LAT6.15 (<14)MV E/A Ratio 0.78 MV E/E' medial 10.11 MV E/E' lateral6.18 Aortic Valve LVOT Area2.75 cm2AoV Area Vmax2.37 cm2 LVOT Vmax 1.14 m/sAoV Area/ BSA (Vmax)1.61 cm2/m2 LVOT Mean Randal.0.77 m/sAVA Mean Randal.2.40 cm2 LVOT Peak Grad 5.2 mmHgAVA Mean Randal. Index1.63 cm2/m2 LVOT Mean Grad 2.7 mmHg LVOT VTI0.242 m LVOT Diam s 1.85 cm AoV Vmax1.32 m/s Velocity Ratio 0.86 AoV Mean Randal.0.89 m/s AoV Peak Grad7.0 mmHg LVOT SV 66.42 mL AoV Mean Grad3.5 mmHg AoV VTI0.246 m AoV Area VTI2.70 cm2 AoV Area/ BSA (VTI)1.83 cm/m2 Mitral Valve MV DT 272 (160-240 msec) MV PHT79 msec MV Area PHT 2.79 cm2 Tricuspid Valve TR Peak Grad 19.0 mmHgTR Vmax 2.18 m/s RA Pressure 3.00 mmHg RVSP (TR) 22.0 mmHg Ordered By: Suresh Montenegro CC: Dictated By: Negin Whitfield M.D. 10/09/22 1247 <Electronically signed by Negin Whitfield M.D. in [place]> 10/09/22 0180 Transcribed By: Negin Whitfield MD This is privileged, confidential information intended only for the provider named. Any use or distribution by any person other than this provider is strictly prohibited. If you receive this report in error, please notify us immediately at [phone] and return the original report to us at the address above. Thank-you. Anesthesia Assessment and Plan Anesthesia History Personal History: No History of Anesthesia Complications Family History: No Family History of Anesthesia Complications Exercise Tolerance Exercise Tolerance: Metabolic Equivalents>4 Pertinent Negatives Pertinent Negatives: No Symptoms of GERD Cardiac & Pulmonary Exam Cardiac Exam: Normal S1/S2 Heart Sounds Pulmonary Exam: Clear Bilateral Breath Sounds Implantable Cardiac Device Does patient have a Pacemaker or an ICD?: No Airway Exam Known Difficult Airway: No Mallampati Class: 2 Mouth Opening: Normal (> 3cm) Thyromental Distance: Greater than 3 cm Neck Range of Motion: Full ROM Neck Circumference: Normal Teeth Condition: Normal Dentition (normal wear and tear) Airway Comments: #12 ?fake? ASA Classification ASA Score: ASA 2 Emergency Case?: No NPO Status NPO Status: NPO Clears >2 hours, Solids >8 hours Anesthesia Plan Resuscitation Status: Full Code Anesthesia Technique: General Anesthesia Airway Planned: Natural Airway Monitors Used: Standard Monitors Preoperative Comments:: Requesting preoperative anxiolytic. Midazolam to be given
--- NOTE | 2024-01-19 11:17 | W.PM.DSUDISC ---
Date of service: 01/19/24 Time of Service: 11:17 Discharge Plan Disposition Patient Disposition: Home Condition: Good Discharge Details Reason For Visit: Bryanna Lizarraga's Release Attending Provider: Erwin Canales Primary Care Provider: Uche Merritt Home Meds and New Rx's Prescriptions: New acetaminophen 500 mg tablet 1,000 mg PO TID Qty: 90 0RF hydrocodone-acetaminophen 5-325 mg tablet 1 tab PO Q6H PRN (Reason: pain) Qty: 6 0RF ibuprofen 600 mg tablet 600 mg PO TID PRN (Reason: pain) Qty: 90 0RF Continued cholecalciferol (vitamin D3) [Dialyvite Vitamin D3 Max] 1,250 mcg (50,000 unit) tablet 1,250 mcg PO QWEEK estradiol [Vagifem] 10 mcg tablet 10 mcg vaginal DAILY 14 Days Qty: 24 4RF Rx Instructions: use one tab in vagina at bedtime twice weekly estradiol 0.01 % (0.1 mg/gram) cream 0.25 g vaginal .2-3x weekly Qty: 42.5 4RF Rx Instructions: Massage a pea-sized amount around the vaginal opening 2-3x/week. paroxetine HCl 10 mg tablet See Rx Instructions .ROUTE .COMPLEX Qty: 90 3RF Dose Instruction: TAKE 1 TABLET BY MOUTH DAILY Rx Instructions: TAKE 1 TABLET BY MOUTH DAILY lovastatin 10 mg tablet 10 mg PO QPM Qty: 90 3RF lorazepam 0.5 mg tablet 0.5 mg PO bid prn Qty: 90 1RF multivitamin Tablet 1 tab PO DAILY Discharge Instructions Additional Instructions: Lesa's Discharge Instructions Activity: You should keep the hand elevated as much as possible for the first few days. You may use the other fingers as tolerated but avoid trying to do too much too soon. You may perform light activities with the splint in place. Dressing/Cast: Your splint should stay in place at all times. Do NOT get it wet. You may loosen the LUH wrap if you feel it is too tight and then rewrap more loosely. Medications: - You should take Tylenol and Ibuprofen for baseline pain control. - You have Hydrocodone for breakthrough pain. - You may apply ice over the thumb. Follow-up: 7-10 days Stand Alone Forms: Anesthesia Discharge InstTonny Hernandez (DSU) Activity:: Activity as Tolerated Remove Dressings/Wound Care:: Do Not Remove Shower/Bathe:: Cover Diet:: As Tolerated Discharge Orders Discharge Orders: Discharge Order (Routine); Ordered 01/19/24 Ordered By: Paul Rawls DS: Diagnosis Discharge Diagnosis (1) De Quervain's tenosynovitis, right: Status: Acute
[2024-01-19] MEDS: ceFAZolin 2 GM/50 ML BAG IVPB (11:38)
[2024-01-19] MEDS: Sodium Bicarbonate 50 MEQ/50 ML VIAL (11:44)
[2024-01-19] MEDS: Lidocaine 1% Pres-Free 30 ML VIAL (11:44)
--- NOTE | 2024-01-19 13:05 | W.ANESPOSTOP ---
Postoperative Evaluation Date, Time and Location Date Performed: 01/19/24 Time Performed: 13:05 Patient Location: Day Surgery Unit Vital Signs Most Recent Imported Vital Signs: Most Recent Vital Signs Temp Pulse Resp BP Pulse Ox 36 C L 71 16 105/65 99 01/19/24 12:40 01/19/24 12:40 01/19/24 12:40 01/19/24 12:40 01/19/24 12:40 Pain Score Most Recent Pain Score: Most Recent Pain Score Pain Level 0 01/19/24 12:40 Assessment Mental Status: Arousable with meaningful communication Airway and Respiratory Function: Patent airway with normal (patient baseline) respiratory exam Cardiovascular Function: Hemodynamically Stable Hydration Status: Adequately Hydrated Nausea & Vomiting: No Nausea or Vomiting Pain: Pt. Denies Any Pain Peripheral Nerve Block: Patient did not receive a nerve block
--- NOTE | 2024-01-19 16:08 | ROE_ITS ---
Date of service: 01/19/24 Time of Service: 12:30 Operative Note Operative Note DATE OF PROCEDURE: 01/19/24 PRE-OP DIAGNOSIS: Right Dequervain's Tenosynovitis POST-OP DIAGNOSIS: same PROCEDURE: Right First Extensor Compartment Release SURGEON: Erwin Canales ANESTHESIA TYPE: General:No Airway Refer to Anesthesia Record ESTIMATED BLOOD LOSS: 0 PATHOLOGY: none sent TOURNIQUET TIME: 0 COMPLICATIONS: None Patient was transported to: same day Patient's condition: stable Indications: Nancy is a 68 year old female who has had symptoms of Dequervain's tenosynovitis. Nonoperative treatment options had been trialed. Given their failure, I offered operative intervention. I reviewed the technical details of a first extensor compartment release. I reviewed the risk of the procedure to include bleeding, infection, pain, stiffness, tendon instability, damage to the superficial radial nerve, and complete release. Despite these risks, the patient elected to proceed. Findings: There was a tightened first excessive compartment with significant thickening of the distal aspect of the compartment. Procedure Description: Nancy was greeted in the preoperative holding area. Name and surgical site were confirmed. The history and physical was completed. The consent was reviewed the patient and signed. Nancy was taken back to the operating room. The patient was placed in the supine position and monitored anesthesia care was initiated. The right was then prepped with ChloraPrep and draped in a standard fashion after a nonsterile tourniquet was placed high up onto the arm. Prophylactic antibiotics in the form of cefazolin were administered. A timeout was performed for safe surgery. The surgical site was drawn on the skin. The planned surgical field was anesthetized with 0.25% bupivacaine with epinephrine. A 2 cm incision was made longitudinally over the radial styloid. The skin was incised only. The deep tissue and subcutaneous fat was dissected with a tenotomy scissors trying to protect bridge of the superficial radial nerve. Any branches that were identified were retracted out of the way. The first compartment extensor tendons were then identified. The distal aspect of the first compartment was noted and were released. This release was performed more on the dorsal side to prevent tendon subluxation. There was a notable prominence to the distal extent of the compartment which was thought to be a cyst, however, it was significantly thickened tissue encapsulating the 1st extensor compartments. The entirety of the first extensor compartment was then released. The slips of the abductor po llicis longus tendon were inspected. They removed to confirm the appropriate motion of the thumb. The extensor pollicis brevis tendon was then identified. Traction on the tendon was also used to confirm appropriate extension of the thumb confirming the release of the appropriate tendon. The dorsal radial surface of the radius was once again inspected to make sure there is no other sub-compartments or other restrictions to tendon motion. The wound was then thoroughly irrigated. The deep tissue was closed with a 3-0 Vicryl. The skin was closed with a running subjective 4-0 Monocryl. The hand was dressed with 4 x 4's, Kerlex and LUH wrap into a soft thumb spica splint. All counts were correct. Patient was transferred back to same day surgery area in stable condition.
== END 2024-01-19 13:35 | disposition home or self-care (01) ==
PROVIDERS: PCP Nurse Practitioner Family; Visit Provider Student in an Organized Health Care Education/Training Program
PROC: (CPT 25000; principal; 2024-01-19 12:00)
DX: M65.4 Radial styloid tenosynovitis [de Quervain] (principal)
CPT/HCPCS: 25000; J0690; J1885; J2001; J2250; J2704; J3010

== ENCOUNTER → 2024-01-28 08:59 | Outpatient (BNVA) | payer MEDICARE, SELFPAY | PROVIDERS: PCP Nurse Practitioner Family; Referring Provider Nurse Practitioner Family; Visit Provider Physician Assistant | DX: M65.4 Radial styloid tenosynovitis [de Quervain] (principal) ==

== ENCOUNTER → 2024-02-24 08:40 | Outpatient (BNVA) | payer MEDICARE, SELFPAY | PROVIDERS: PCP Nurse Practitioner Family; Referring Provider Nurse Practitioner Family; Visit Provider Student in an Organized Health Care Education/Training Program | DX: Z47.89 Encounter for other orthopedic aftercare (principal); M25.531 Pain in right wrist ==

== ENCOUNTER 2024-07-10 15:48 | Outpatient (REF) | payer MEDICARE, SELFPAY ==
[2024-07-10 21:22] LABS: RBC Negative HPF (0-2); WBC Negative HPF (0-5)
[2024-07-10 21:23] LABS: Bacteria Rare HPF (Negative); C & S Indicated? No; Casts Negative LPF (Negative); Crystals Negative HPF (Negative); Epithelial Cells Few HPF (Negative); Mucus Negative (Negative)
== END 2024-07-10 15:49 | disposition home or self-care (01) ==
LOC: LBN 15:48
PROVIDERS: PCP Nurse Practitioner Family; Visit Provider Nurse Practitioner Family
DX: R31.9 Hematuria, unspecified (principal)
CPT/HCPCS: 81015

== ENCOUNTER 2024-07-13 00:27 | Outpatient (CLI) | payer MEDICARE, SELFPAY ==
--- NOTE | 2024-07-13 07:45 | DI.MAMMO_ITS ---
Exam(s) MAMMO SCREENING EXAM: MAMMO SCREENING CLINICAL HISTORY: screening,z12.39 TECHNIQUE: Mammograms were interpreted according to the usual protocol including computer analysis w miiCard CAD system, tomosynthesis and C-view imaging. COMPARISON: 2017 through 2023 FINDINGS: The breasts are composed of heterogeneously dense fibroglandular densities, Breast Density category C . No suspicious masses or suspicious microcalcifications are seen. No skin thickening or abnormal axillary lymph nodes are seen. There has been no significant change from prior exams. IMPRESSION: BI-RADS Category 1, Negative mammogram. Yearly screening mammography is recommended. Breast Density Category C, heterogeneously Dense. The mammogram demonstrates the patient's breast tissue is dense. Dense breast tissue is very common a nd is not abnormal but dense breast tissue can make it harder to find cancer on a mammogram. Also, de nse breast tissue may increase breast cancer risk. This information about the result of the mammogram report was provided to the patient to raise their awareness. Use this report when you speak with the patient about their risks for breast cancer, which includes their family history. At that time, you may recommend additional screening tests (Ultrasound or MRI) as they might be useful based on their r isk. A negative radiographic report should not delay biopsy if a dominant or clinically suspicious mass is present. Up to ten percent of cancers are not identified on mammography. A negative report may reinforce clinical impression. Adenosis and dense breasts may obscure an underlying neoplasm. False positive reports average 6 to 10%.
== END 2024-07-13 00:47 ==
LOC: DI 00:28
PROVIDERS: PCP Nurse Practitioner Family; Visit Provider Nurse Practitioner Family
DX: Z12.31 Encounter for screening mammogram for malignant neoplasm of breast (principal)
CPT/HCPCS: 77063; 77067

== ENCOUNTER 2024-07-14 01:15 | Outpatient (CLI) | payer MEDICARE, SELFPAY ==
[2024-07-14 13:16] LABS: ALT 23 U/L (14-59); AST 22 U/L (15-37); Albumin 3.8 g/dL (3.4-5.0); Alkaline Phosphatase 53 U/L (46-116); Anion Gap 3.2 mmol/L (3-11); BUN 16 mg/dL (7-18); Bilirubin, Total 0.71 mg/dL (0.2-1.0); CO2 31.8 mmol/L (21.0-32.0); CREATININE 0.9 mg/dL (0.55-1.02); Calcium 9.1 mg/dL (8.5-10.1); Calculated LDL 85 mg/dL (<100); Chloride 103 mmol/L (98-107); Cholesterol 182 mg/dL (<200); Estimated GFR 70.51 (mL/min/1.73m2); Glucose 92 mg/dL (74-106); HDL Cholesterol 83 mg/dL (40-60); Potassium 4.1 mmol/L (3.5-5.1); Sodium 138 mmol/L (136-145); Total Protein 6.9 g/dL (6.4-8.2); Triglyceride 73 mg/dL (<150); Vitamin D 25 Total 45.4 ng/mL (30-100)
[2024-07-14 13:35] LABS: FREE T4 0.76 ng/dL (0.76-1.46)
== END 2024-07-14 01:16 | disposition home or self-care (01) ==
LOC: LOS 01:15
PROVIDERS: PCP Nurse Practitioner Family; Visit Provider Nurse Practitioner Family
DX: E78.5 Hyperlipidemia, unspecified (principal); E55.9 Vitamin D deficiency, unspecified; E03.9 Hypothyroidism, unspecified
CPT/HCPCS: 36415; 80053; 80061; 82306; 84439; 84443

== ENCOUNTER 2024-09-15 14:01 | Outpatient (CLI) | payer MEDICARE, SELFPAY ==
--- NOTE | 2024-09-15 14:50 | DI.RAD_ITS ---
Exam(s) XR KNEE RT 3V AP,LAT,EDENILSON XR TIB/FIB RT EXAM: XR TIB/FIB RT CLINICAL HISTORY: worsening pain, no relief with PT M79.604 PAIN RT LEG. TECHNIQUE: 2D digital imaging was performed. Two views of the leg. Three views of the knee. COMPARISON: CR XR KNEE RT 3V AP,LAT,EDEINLSON from 09/15/2024 FINDINGS: BONES/joints: No acute fracture is present. No bony destructive lesion is seen. There is mild-to-mod erate narrowing of the medial femoral tibial joint space of the knee with mild periarticular spurring . No joint effusion. Mild chondrocalcinosis. The ankle is unremarkable. SOFT TISSUE: Normal. IMPRESSION: Cxkp-[id number]-igkiuvgw degenerative changes of the medial femoral tibial joint of the knee. DATA REPOSITORY: RADIATION DOSE DELIVERED:
--- NOTE | 2024-09-15 14:50 | DI.RAD_ITS ---
Exam(s) XR KNEE RT 3V AP,LAT,EDENILSON XR TIB/FIB RT EXAM: XR TIB/FIB RT CLINICAL HISTORY: worsening pain, no relief with PT M79.604 PAIN RT LEG. TECHNIQUE: 2D digital imaging was performed. Two views of the leg. Three views of the knee. COMPARISON: CR XR KNEE RT 3V AP,LAT,EDENILSON from 09/15/2024 FINDINGS: BONES/joints: No acute fracture is present. No bony destructive lesion is seen. There is mild-to-mod erate narrowing of the medial femoral tibial joint space of the knee with mild periarticular spurring . No joint effusion. Mild chondrocalcinosis. The ankle is unremarkable. SOFT TISSUE: Normal. IMPRESSION: Aewa-iy-ncyophsi degenerative changes of the medial femoral tibial joint of the knee. DATA REPOSITORY: RADIATION DOSE DELIVERED:
--- NOTE | 2024-09-15 14:50 | DI.RAD_ITS ---
Exam(s) XR CLAVICLE RT EXAM: XR CLAVICLE RT CLINICAL HISTORY: increasing bony deformity, medial aspect M89.8X1 PAIN RT CLAVICLE TECHNIQUE: 2D digital imaging was performed of the right clavicle. Two images were obtained. AP and axial views were obtained. COMPARISON: No exams were available for comparison FINDINGS: BONES: No acute fracture is present. No bony destructive lesion is seen. The medial clavicle is parti ally obscured due to overlapping osseous structures. JOINTS: No dislocation present. SOFT TISSUE: Normal IMPRESSION: No gross abnormality is seen in the right clavicle, however the medial clavicle is partially obscured due to overlapping osseous structures. If there is continued clinical concern, a CT scan may be con sidered for further characterization. DATA REPOSITORY: RADIATION DOSE DELIVERED:
== END 2024-09-15 14:21 ==
LOC: DI 14:02
PROVIDERS: PCP Nurse Practitioner Family; Visit Provider Nurse Practitioner Family
DX: M89.8X1 Other specified disorders of bone, shoulder (principal); M17.0 Bilateral primary osteoarthritis of knee
CPT/HCPCS: 73562; 73000; 73590

== ENCOUNTER 2024-09-20 01:30 | Outpatient (CLI) | payer MEDICARE, SELFPAY ==
--- NOTE | 2024-09-20 06:15 | DI.CT_ITS ---
Exam(s) CT UPPER EXTREMITY RT WO EXAM: CT UPPER EXTREMITY RT WO CLINICAL HISTORY: f/u xray,pain rt clavicle,m89.8xa TECHNIQUE: Imaging Protocol: Axial computed tomography images with coronal and sagittal reformatted images were created and reviewed. CONTRAST MATERIAL: Intravenous: None COMPARISON: CR XR CLAVICLE RT from 09/15/2024 FINDINGS: OSSEOUS: There are degenerative changes in both sternoclavicular joints, more so on the right side an d there is also in the bony excrescence-osteophyte off the anterosuperior aspect of the most medial a spect of the right clavicle which measures 9 x 8 mm. This is in addition to degenerative subarticula r cysts in the medial aspect of the clavicle at this level. SOFT TISSUES: The overlying soft tissues are slightly elevated by this anterior osteophyte on the med ial aspect of the right clavicle. However, there is no distinct soft tissue mass evident. IMPRESSION: There is degenerative change in both sternoclavicular joints but this is more prominent on the right side where there is also an exostoses/osteophyte off the anterior aspect of the medial clavicle with elevation of the adjacent soft tissues. This is probably palpable. RADIATION DOSE DELIVERED: 58.26mGy.cm Total DLP DATA REPOSITORY: All CT scans at this facility are submitted to the National Radiology Data Registry (NRDR) Dose Index Registry (DIR) with the [employer] ([employer]). RADIATION OPTIMIZATION: All CT scans at this facility use at least one of these dose optimization te chniques: automated exposure control; mA and/or kV adjustment per patient size (includes targeted exa ms where dose is matched to clinical indication); or iterative reconstruction.
== END 2024-09-20 01:50 ==
LOC: DI 01:30
PROVIDERS: PCP Nurse Practitioner Family; Visit Provider Nurse Practitioner Family
DX: M89.8X1 Other specified disorders of bone, shoulder (principal)
CPT/HCPCS: 73200

== ENCOUNTER → 2024-10-26 08:57 | Outpatient (BNVA) | payer MEDICARE, SELFPAY | PROVIDERS: PCP Nurse Practitioner Family; Referring Provider Nurse Practitioner Family; Visit Provider Physician Assistant | DX: M19.011 Primary osteoarthritis, right shoulder (principal); M70.51 Other bursitis of knee, right knee | CPT/HCPCS: 99213 ==

== ENCOUNTER 2025-02-20 14:33 | Outpatient (CLI) | payer MEDICARE, SELFPAY ==
--- NOTE | 2025-02-20 13:51 | DI.RAD_ITS ---
Exam(s) XR SHOULDER RT COMPLETE 2+V EXAM: XR SHOULDER RT COMPLETE 2+V CLINICAL HISTORY: RIGHT SHOULDER PAIN. TECHNIQUE: 2D digital imaging was performed. COMPARISON: No exams were available for comparison FINDINGS: 3 views No evidence of fracture or dislocation nor abnormal soft tissue calcifications. Minimal degenerative changes in the glenohumeral joint. Mild degenerative changes in the AC joint. Coracoid process appears intact. Bone density normal. No osseous lesions. IMPRESSION: Minimal degenerative changes. No abnormal soft tissue calcifications. No significant diminution of the subacromial space. DATA REPOSITORY: RADIATION DOSE DELIVERED:
== END 2025-02-20 14:34 | disposition home or self-care (01) ==
LOC: DIORS 14:33
PROVIDERS: PCP Nurse Practitioner Family; Referring Provider Nurse Practitioner Family; Visit Provider Student in an Organized Health Care Education/Training Program
DX: M75.101 Unspecified rotator cuff tear or rupture of right shoulder, not specified as traumatic (principal); M19.011 Primary osteoarthritis, right shoulder; M25.511 Pain in right shoulder; M89.8X8 Other specified disorders of bone, other site
CPT/HCPCS: 99214; 73030

== ENCOUNTER 2025-03-16 03:08 | Outpatient (CLI) | payer MEDICARE, SELFPAY ==
--- NOTE | 2025-03-16 06:15 | DI.MRI_ITS ---
Exam(s) MR UPPER JOINT RT WO EXAM: MR UPPER JOINT RT WO CLINICAL HISTORY: R SHOULDER PAIN,RT ROTATOR CUFF TEAR,M75.101. TECHNIQUE: Multiplanar multisequence MRI was performed. COMPARISON: CT CT UPPER EXTREMITY RT WO from 09/20/2024 CR XR SHOULDER RT COMPLETE 2+V from 02/20/2025 FINDINGS: BONES: There is no fracture or contusion pattern. JOINTS: There are mild degenerative changes seen at the acromioclavicular joint. The glenohumeral joint is normal. There is no significant joint effusion. TENDONS: Supraspinatus: There is tendinosis of the supraspinatus tendon. There is hyperintense signal which appears to lie in the supraspinatus tendon anteriorly at its insertion suspicious for at least a partial tear. Infraspinatus: Unremarkable. Subscapularis: There is tendinosis of the subscapularis tendon. Teres Minor: Unremarkable. Biceps and [place]: There is tendinosis of the long head of the biceps. MUSCLES: There is ubjx-oo-scjkjhof fatty atrophy of the infraspinatus muscle. GLENOID LABRUM: There is hyperintense signal seen in the superior labrum posterior to the biceps anchor. There is a paralabral cyst seen posteriorly. SOFT TISSUES: Unremarkable. LIGAMENTS: Unremarkable. OTHER: There is a small amount of fluid in the subacromial bursa. IMPRESSION: 1. There is a superior labral tear posterior to the biceps anchor insertion site. There is an associated paralabral cyst. 2. Hyperintense signal seen which appears to lie in the supraspinatus tendon anteriorly suspicious for at least a partial tear. 3. Tendinosis of the biceps, subscapularis and supraspinatus tendons. 4. Ujnn-bi-knpngczp fatty atrophy of the infraspinatus muscle. 5. Mild degenerative changes seen at the acromioclavicular joint. DATA REPOSITORY:
== END 2025-03-16 03:28 ==
LOC: DI 03:08
PROVIDERS: PCP Nurse Practitioner Family; Visit Provider Student in an Organized Health Care Education/Training Program
DX: M75.101 Unspecified rotator cuff tear or rupture of right shoulder, not specified as traumatic (principal); S43.439A Superior glenoid labrum lesion of unspecified shoulder, initial encounter; M75.21 Bicipital tendinitis, right shoulder
CPT/HCPCS: 73221

== ENCOUNTER → 2025-03-21 07:55 | Outpatient (BNVA) | payer MEDICARE, SELFPAY | PROVIDERS: PCP Nurse Practitioner Family; Referring Provider Nurse Practitioner Family; Visit Provider Student in an Organized Health Care Education/Training Program | DX: M75.101 Unspecified rotator cuff tear or rupture of right shoulder, not specified as traumatic (principal); S43.431A Superior glenoid labrum lesion of right shoulder, initial encounter; M67.921 Unspecified disorder of synovium and tendon, right upper arm; X58.XXXA Exposure to other specified factors, initial encounter | CPT/HCPCS: 99214 ==

== ENCOUNTER 2025-04-19 18:21 | Observation (INO) | payer MEDICARE, SELFPAY ==
[2025-04-19] VITALS (45 sets, daily range): BP systolic 100–164; BP diastolic 54–93; PULSE 67–94; RESP 9–22; TEMP 36.1–36.9; O2SAT 92–100; BMI 21.9
--- NOTE | 2025-04-19 10:37 | W.PM.OP ---
Operative Note Operative Note PRE-OP DIAGNOSIS: Right: 1. Rotator cuff tearing 2. LHB partial tearing 3. SLAP tear 4. Spinoglenoid notch cyst POST-OP DIAGNOSIS: same PROCEDURE: Right: 1. Rotator cuff repair, CPT# 96823. This involved repair of the subscapularis using anchor and suture to reattach the rotator cuff back to the footprint of the lesser tuberosity. 2. Arthroscopic biceps tenodesis, CPT# 13247. This involved arthroscopically suturing and reattaching the long head of the biceps tendon to the proximal humerus at the superior margin of the bicipital groove with a screw at the correct tension. 3. Extensive debridement, CPT# 69193. This involved using arthroscopic hand instruments, power instruments, and radiofrequency instruments to release the long head of the biceps tendon and debride areas of anterior labral tear, SLAP tearing, aspirate and debride the paralabral cyst, to read partial articular supraspinatus tearing, and an debride subacromial bursitis. 4. Arthroscopic SLAP repair, CPT #56557: This involved suture anchor repair of the biceps anchor SLAP tear at the cyst entrance The pharmaceutical assistant was medically required in order to help assist in techniques above, which require positioning the arm, holding the arthroscope, and manipulating multiple instruments and sutures at the same time. This cannot be done without the help of an experienced pharmaceutical assistant. SURGEON: Julian Pierson VENDOR QUALITY SUPERVISOR: Marvin Tijerina ANESTHESIA TYPE: Local By Surgeon and General LMA/ETT Refer to Anesthesia Record ESTIMATED BLOOD LOSS: 5 PATHOLOGY: none sent COMPLICATIONS: None Patient was transported to: PACU Patient's condition: stable Implants: Arthrex: 4.75mm SwiveLocks x 1, 2.9 mm PushLock x 1 Indications: The patient was diagnosed with the above conditions and appropriately indicated for surgical intervention. Please see complete medical record for details. Of note, the AC joint was reevaluated and date of surgery and confirmed to be negative for discomfort. The moderate external rotation weakness at the side was confirmed again due to the spinoglenoid notch cyst from the SLAP tear. There was also significant anterior biceps tenderness as well as moderate discomfort and weakness internal rotation and belly press for the subscapularis. Empty can forward elevation was moderately uncomfortable as well, but difficult to fully discern between rotator cuff and biceps tearing. There was no biceps deformity. Findings: Exam under anesthesia: Full range of motion, no instability. Chronic SC joint anterior prominence. Glenohumeral joint: Mild generalized chondromalacia maybe more moderate central glenoid. Notable anterior labral degenerative fraying tearing with a somewhat anterior superior labral avoid recess and Diana complex combined with the [facility] L, which led to an unstable biceps anchor SLAP tear. There was also moderate partial tearing of the biceps tendon at the superior aspect of the bicipital groove. There was a cystic like structure just superior and medial to the posterior superior glenoid margin. The labral tear stopped around 11:00 without much more labral tearing posteriorly. There was some chronic–appearing degenerative tearing of the upper lateral moderate portion of the subscapularis. There was moderate partial tearing of the articular supraspinatus without significant footprint exposure or involvement. Intact infraspinatus. Subacromial space: Moderate bursitis, no significant subacromial bone spur, diffuse rotator cuff injection and relatively mild fraying, largely structurally intact. Procedure Description: In the operating room, general anesthesia was induced. Bilateral shoulders were examined. The patient was positioned in the beachchair position. All bony prominences were well-padded. Preoperative antibiotics were administered. The shoulder was prepped and draped in the usual sterile fashion. The correct patient, procedure, and side of the procedure were all verified prior to incision. Starting through the posterior portal a standard complete diagnostic arthroscopy was performed of the glenohumeral joint including inspection of the long head of the biceps, anterior and superior labrum, subscapularis tendon, supraspinatus and infraspinatus tendons, and axillary recess. The glenoid and humeral head cartilage as well as the posterior labrum were inspected from an anterior viewing portal. Significant findings and interventions noted above. Particular attention was paid to the spinoglenoid notch cyst decompression. There was a seemingly obvious area of bulbous capsular enlargement at the corresponding area posterior superior joint just posterior to the biceps anchor that was punctured in multiple locations with a spinal needle with multiple attempts made at aspiration and a small amount of cystic fluid drained. Graspers and hand-injection's were used to ensure the cyst was deflated indirectly. The cyst was not formally opened to avoid damaging the superior capsule and superior rotator cuff. Next, working through the biceps anchor SLAP tear the needle and then relatively blood switching sticks were inserted into the cystic void area to agitate and ensure satisfactory decompression with some possible cystic material expressed and evacuated from the joint. Care was taken through this process to avoid passing any instruments more than a few millimeters to a centimeter medial to the glenoid to avoid the suprascapular nerve. The anterior and subcoracoid area had some cystic fluid on the MRI as well and this was more bluntly agitated with switching stick and synovitis and capsulitis debridement can tear immediately confirming no remnant large cystic structures here as well. A rigid cannula was inserted anteriorly. An all-arthroscopic suprapectoral biceps tenodesis was performed through an anterior portal using a Loop N Tack method with a SutureTape FiberLink cinched around and through the tendon. The biceps was tenotomized from the labrum and fixated with a suture anchor at the superior margin of the bicipital groove. The extra knotless repair suture was shuttled around the repaired tendon stump and then secured through the anchor mechanism and additional excellent fixation strength to the repair, which was stable through direct arm pressure testing and had appropriate contour. The subscapularis tear had been debrided and grasped with reasonable reduction to the upper portion of the lesser tuberosity. The 90 degree lasso had been used after placing the biceps stitch and releasing the biceps to pass a FiberTape through the bulk of the tear. These FiberTape subscap's repair sutures were also loaded on the biceps tenodesis repair anchor and repair was completed at the same time with the arm in neutral position to avoid undue tension. The subscapularis had good oriental orthodox of tendon roundness and contour and was stable through external rotation testing. The arthroscope was redirected into the subacromial space from posterior, there was moderate bursitis, which was able to be debrided through the anterior portal also redirected in the subacromial space. The undersurface of the acromion was exposed with the radiofrequency wand there was no significant bone spurring requiring removal. The bursectomy was carried laterally in the arm position rotated to confirm intact bursal rotator cuff. Given the limited thickness although modest area of partial articular tearing, no takedown and repair was indicated. Lastly, attention was turned to the SLAP repair. The labrum had been contoured with a debridement anterior through superior. Various working portals were considered with the biceps anchor having good access for repair and suture anchor placement for the high anterior portal. The superior margin of the glenoid beneath the biceps stump was prepared with rasps to optimize healing. The 9 degree lasso was used to shuttle a suture tape FiberLink just anterior to the biceps anchor and a second luggage tag stitch just posterior to the biceps anchor. The push lock drill was then placed carefully at the superior glenoid just beneath the biceps anchor, held securely in place, and the push lock anchor drilled confirmed to be in appropriate bone, the repair sutures loaded on the push lock anchor, which was deployed nicely with good closure of the SLAP tear and fixation across the area from anterior to posterior of the biceps anchor. The void could not be accessed with switching sticks. Decision was made to omit any more repair anteriorly as this was not an instability case and closure of the [place] complex would likely lead to stiffness in this setting, but not benefit any additional closure of the cyst area. The shoulder was drained of arthroscopic fluid. All portal sites were copiously irrigated. These incisions were closed using 3-0 Monocryl in a buried fashion and then covered with Mastisol, Steri-Strips, Xeroform, dry gauze, and ABDs. The dressings were covered and secured with Medipore tape. The operative extremity was placed into a sling for immobilization. The patient awoke from anesthesia without complication and was transferred to the recovery room in a stable condition. Date of Procedure: 04/19/25
--- NOTE | 2025-04-19 11:10 | PDOC.DSDIS_ITS ---
Date of service: 04/19/25 Discharge Plan Disposition Patient Disposition: Home Condition: Stable Discharge Details Attending Provider: Julian Pierson Primary Care Provider: Uche Merritt Home Meds and New Rx's Prescriptions: New naproxen 250 mg tablet 250 - 500 mg PO BID PRN (Reason: Moderate pain) Qty: 40 0RF oxycodone 5 mg tablet 5 - 10 mg PO Q4H PRN (Reason: Moderate to severe pain) Qty: 18 0RF Continued cholecalciferol (vitamin D3) [Dialyvite Vitamin D3 Max] 1,250 mcg (50,000 unit) tablet 1,250 mcg PO DAILY estradiol 0.01 % (0.1 mg/gram) cream 0.25 g vaginal .2-3x weekly Qty: 42.5 4RF Rx Instructions: Massage a pea-sized amount around the vaginal opening 2-3x/week. estradiol [Vagifem] 10 mcg tablet 10 mcg vaginal DAILY 14 Days Qty: 24 4RF Rx Instructions: use one tab in vagina at bedtime twice weekly paroxetine HCl 10 mg tablet See Rx Instructions .ROUTE .COMPLEX Qty: 90 3RF Dose Instruction: TAKE 1 TABLET BY MOUTH DAILY Rx Instructions: TAKE 1 TABLET BY MOUTH DAILY lovastatin 10 mg tablet 10 mg PO QPM Qty: 90 3RF lorazepam 0.5 mg tablet 0.5 mg PO bid prn Qty: 90 1RF estradiol 0.5 mg tablet 0.5 mg PO DAILY Qty: 90 1RF Discharge Instructions Additional Instructions: Surgery: Right shoulder arthroscopy with extensive debridement (including spinoglenoid notch cyst decompression), biceps tenodesis, subacromial compression, rotator cuff repair (subscapularis), and SLAP repair on 04/19/2025 Activity: For 6 weeks, you should keep your arm at your side in a neutral position at all times except for physical therapy. Do not try to lift or raise your arm using your own muscles. You should use the sling whenever you are out of the house. At home it is best to remove the sling and rest the arm on a pillow at your side or support the operative side with your other hand. You may allow the arm to dangle at your side. A physical therapy prescription will be sent electronically to begin in about 3 weeks. Prescriptions: Naproxen 250 mg take 1-2 every 12 hours with a meal as needed for moderate pain Oxycodone 5 mg take 1-2 every 4-6 hours as needed for severe pain You may use ovwx-rhk-jfrfmtk Tylenol (acetaminophen) as needed for mild pain. These pain medications may be taken all at once or in different combinations as needed. Also, recommend Colace (docusate) as a stool softener as surgery and pain medicine cause constipation. You may try cpne-zta-rbrcasp diphenhydramine (Benadryl) 25-50 mg nightly as a sleep aid Dressings: Remove shoulder bandage after 3 days. Leave the sticky Steri-Strips in place until they fall off or remove them after you shower. Cover the incisions with Band-Aids or leave them open to air. You may shower after 5 days. Follow-up: 10-[address] Pierson You may take off the leg compression stockings this evening at home. You may also leave them on a few days longer if you have a history of leg swelling or edema. Let us know right away if you develop any redness, drainage, fevers, chest pain, or trouble breathing. Do not drink alcohol or drive for at least 24 hours after anesthesia. Please call the office during business hours with any questions or concerns. Stand Alone Forms: Anesthesia Discharge Inst., Tonny Rodriguez ([facility]), Portal Information Referrals: Julian Pierson MD [ [facility] STAFF PHYSICIAN, Orthopaedic Surgical] - 05/01/25 1:30 pm Discharge Orders Discharge Orders: Discharge Order (Routine); Ordered 04/19/25 Ordered By: Marvin Tijerina DS: Diagnosis Discharge Diagnosis (1) Tendinopathy of right biceps tendon: Status: Acute (2) Superior labrum dxtyxhul-fc-irvfzufby (SLAP) tear of right shoulder: Status: Acute (3) Rotator cuff tear, right: Status: Acute
[2025-04-19] MEDS: Lactated Ringers 1,000 ML 30 ML IV ×2 (11:55→16:21)
--- NOTE | 2025-04-19 12:21 | W.ANESPRE ---
General Info Date of Service Date Performed: 04/19/25 Height: 5 ft 0.25 in Weight: 51.3 kg Body Mass Index (BMI): 21.9 Surgical Procedure: Operation Date: 04/19/25 14:10 Proposed Procedure Side Surgeon p Shoulder Rotator Cuff Arthroscopic w/Extensive Debridement, Biceps Tenodesis, Subacromial Decompression Right Julian Pierson MD Meds Allergies and Home Medications Allergies Allergy/AdvReac Type Severity Reaction Status Date / Time Sulfa (Sulfonamide Allergy Severe tongue/mouth Verified 04/19/25 11:36 Antibiotics) swell Penicillins Allergy Unknown Hives Verified 04/19/25 11:36 Latex, Natural Rubber Allergy Skin Rash Verified 04/19/25 11:36 lactose AdvReac Severe Nausea Verified 04/19/25 11:36 Home Medication Medication Instructions Recorded cholecalciferol (vitamin D3) 1,250 1,250 mcg PO DAILY 10/15/20 mcg (50,000 unit) tablet (Dialyvite Vitamin D3 Max) estradiol 0.01% (0.1 mg/gram) 0.25 g vaginal .2-3x weekly #42.5 07/29/23 vaginal cream grams lorazepam 0.5 mg tablet 0.5 mg PO bid prn #90 tab-caps 04/28/24 lovastatin 10 mg tablet 10 mg PO QPM #90 tabs 04/28/24 paroxetine HCl 10 mg tablet See Rx Instructions .Route 04/28/24 .COMPLEX #90 tabs estradiol 10 mcg vaginal tablet 10 mcg vaginal DAILY 2 weeks #24 07/10/24 (Vagifem) tabs estradiol 0.5 mg tablet 0.5 mg PO DAILY #90 tabs 11/23/24 Current Visit Medications: Current Medications Generic Name Dose Route Start Last Admin Trade Name Freq PRN Reason Stop Dose Admin Ringer's Solution 1,000 mls @ 30 mls/hr 04/19/25 06:00 04/19/25 11:55 IV 04/19/25 23:59 30 mls/hr INFUSION LOIS Administration Cefazolin Sodium/Dextrose 2 gm in 50 mls @ 100 mls/hr 04/19/25 06:00 Ancef Duplex IVPB 04/19/25 23:59 PREOP LOIS Tranexamic Acid/Sodium Chloride 1,000 mg in 100 mls @ 600 mls/hr 04/19/25 06:00 IVPB 04/19/25 23:59 PREOP [facility] IV Miscellaneous Supplies 1 each 04/19/25 06:00 Iv Access IV 04/19/25 23:59 DIRECTED LOIS Oxycodone HCl 0 mg 04/19/25 11:10 Oxycodone 5 Mg Tab PO 05/19/25 11:09 Q3H PRN PRN Pain Sodium Chloride 0 ml 04/19/25 06:00 Normal Saline Flush 10 Ml Syr IV 04/19/25 23:59 PRN PRN Sodium Chloride 0 ml 04/19/25 06:00 Normal Saline 10 Ml Vial IJ 04/19/25 23:59 DIRECTED PRN Sterile Water 0 ml 04/19/25 06:00 Water,Injection,Sterile 10 Ml Vial IJ 04/19/25 23:59 DIRECTED PRN PFSH Active Problems Active Problems: Problem Status Onset Code Tendinopathy of right biceps tendon Acute M67.921 Superior labrum rffskytq-fh-knccgtfnq (SLAP) tear of right shoulder Acute S43.431A Rib lesion Acute M89.9 Rotator cuff tear, right Acute M75.101 Pes anserinus bursitis of right knee Acute M70.51 Arthritis of right sternoclavicular joint Acute M19.011 On hormone replacement therapy Acute Z79.890 Hot flashes due to menopause Acute N95.1 Right hip pain Acute M25.551 Pain of left thumb Acute M79.645 De Quervain's tenosynovitis, right Acute M65.4 Right leg pain Acute M79.604 Irritable bowel syndrome with diarrhea Acute K58.0 Hyperlipidemia Acute E78.5 Back strain Acute S39.012A Ganglion cyst of finger Acute M67.449 Complex tear of medial meniscus of right knee Acute S83.231A Vitamin D deficiency Acute E55.9 Hypothyroidism Chronic E03.9 Chronic diarrhea Acute K52.9 Polyp of colon Acute 12/31/12 K63.5 Neoplasm of unspecified nature of bone, soft tissue, and skin Acute 02/22/17 D49.2 Hip pain Acute 07/17/14 M25.559 Dyspareunia Acute 11/20/14 Atrophic vaginitis Acute 06/03/12 N95.2 Anxiety Acute 12/31/12 F41.9 Medical History Medical History Family history of colon cancer in father History of osteomyelitis (10/04/17) COVID-19 Onset: 03/21/22 Fully vacinated-two boosters GERD (gastroesophageal reflux disease) Postural orthostatic tachycardia syndrome Per pt. states I get very light headed when I go from sitting to standing, any change of position I get very very dizzy Anxiety Migraine headache without aura Medical History Comments:: Orthostatic Hypotension Surgical History Surgical History Abdominal hysterectomy Thinks 1994. Ovaries left in place Colonoscopy - MAC (09/14/22) 06/29/2017 Tobacco Smoking/Tobacco Use Status: Never Passive smoking exposure: Yes (dad smoked- years ago) Second hand exposure: Yes Alcohol Alcohol Intake: current Alcohol intake frequency: holidays/special occasions only Alcohol type: wine Substance Use Substance use: Daily Substance use type: marijuana Details: 04/19/25: pt smoked marijuana last night Uses edibles on a regular basis Prental History History 4 Para 2 Hx # Term Pregnancies Multiple births Hx # Pregnancies Ectopic pregnancies AB induced Hx Number of Living Children AB spontaneous Vital Signs and Lab Results Vital Signs Most Recent Vital Signs in EMR: Most Recent Vital Signs Temp Pulse Resp BP Pulse Ox 36.4 C L 68 16 116/66 99 04/19/25 11:24 04/19/25 11:24 04/19/25 11:24 04/19/25 11:24 04/19/25 11:24 Imaging and Studies Imaging and Studies Study information below may be from another EMR and interpreted by another provider. Please see original notes in EMR for more complete details. EKG Summary: 06/26/2022: Exam: Resting ECG Reason for Exam: syncope Patient Location: O HR:64 bpm ECG Measurements Heart Rate 64 AXIS NH 138 P 74 QRSd 82 QRS 30 QT 405 T56 QTc 418 Conclusion Sinus rhythm...normal P axis, V-rate 50- 99 Normal Electrocardiogram Echocardiogram Summary: Patient Name: Micheline Gentile Unit #: [id number] Loc: DI Ordering Provider: Suresh Montenegro Status: REG CLI Primary Care Provider: Uche Merritt NP Date of Exam: 10/09/22 Sex: F Admission Date: 10/09/22 : 1955 Age: 66 APPROVED REPORT EXAM: Comprehensive 2D, Doppler, and color-flow Echocardiogram Patient Location: Out-Patient Sales Development Representative: Lea Schaeffer RDCS (AE) Indications: Syncope, Murmur Other Information Study Quality: Good Conclusion Normal left ventricular wall thickness and chamber size. Ejection fraction is 65%. Wall motion is normal Normal right ventricular size and systolic function Both atria are normal in size There are no structural valvular abnormalities Trace to mild mitral regurgitation Mild tricuspid regurgitation, estimated right ventricular systolic pressure is 22 mmHg Wall motion Left Ventricle The left ventricle is normal size. The left ventricular systolic function is normal. The left ventricular ejection fraction is within the normal range. There is normal left ventricular wall thickness. There is normal LV segmental wall motion. There is no ventricular septal defect visualized. LVEF is 65%. Right Ventricle The right ventricle is normal size. The right ventricular systolic function is normal. Atria The left atrium size is normal. The right atrium size is normal. The interatrial septum is intact with no evidence for an atrial septal defect. Aortic Valve The aortic valve is normal in structure. There is no aortic valvular stenosis. No aortic regurgitation is present. Mitral Valve The mitral valve is normal in structure. No evidence of mitral valve stenosis. Trace to mild mitral regurgitation. Tricuspid Valve The tricuspid valve is normal in structure. There is no tricuspid valve stenosis. Mild tricuspid regurgitation. Great Vessels The aortic root is normal in size. The ascending aorta is normal in size. Aortic arch is not well visualized. IVC is normal in size and collapses >50% with inspiration. Pericardium There is no pericardial effusion. 2D Dimensions IVSD d PLAX 0.81 cm F: 0.6-1.0LV Vol A2C d MOD 63.4 mL LVPW d PLAX 0.81 cm F: 0.6 - 1.0LV Vol A4C d MOD 66.4 mL LVID d PLAX 4.04 cm F: 3.8 - 5.2LA vol/ BSA A2C s A-L19.3 mL/m2 LVDs 2.60 cm F: 2.2 - 3.5LA vol/ BSA A4C s A-L21.8 mL/m2 Ao Root d 2.54 cm F: 2.7 - 3.3LA Vol/ BSA Biplane s A-L 21.8 mL/m2 RA Area A4C10.45 cm2LA Area A4C s MOD 12.73 cm2 RA Vol/ BSA A4C s A-L 15.4 mL/m2LA Area A2C s MOD 11.29 cm2 Ao Asc Diam d 2.86 cm F: 2.3 - 3.1LV EF A4C MOD 65.5 % LV EF Teichholz 65.6 %LV EF A2C MOD 65.0 % LVEF (Sheffiled's)65.04 % F: 54 - 74LV EF Biplane MOD 65.0 % LV Muazyo66.43 mL F: 46 - 094ZY60.97 mL LV Volume Index37.45 mL/m2 F: 29 - 61SV Index29.13 mL/m2 LV Vol Biplane MOD 66.1 mL FS35.60 % M-Mode TAPSE 2.27 cm (M/F) >1.7 LV Diastology MV E' medial0.064 (>0.07 m/s)E/A Ratio 0.8 LV E/e MED10.10 (<14)MV E Vmax 0.64 (0.4-1.3 m/s) MV E' lateral0.104 (>0.1 m/s)MV A Vmax 0.80 (0.4-1.3 m/s) LV E/e LAT6.15 (<14)MV E/A Ratio 0.78 MV E/E' medial 10.11 MV E/E' lateral6.18 Aortic Valve LVOT Area2.75 cm2AoV Area Vmax2.37 cm2 LVOT Vmax 1.14 m/sAoV Area/ BSA (Vmax)1.61 cm2/m2 LVOT Mean Randal.0.77 m/sAVA Mean Randal.2.40 cm2 LVOT Peak Grad 5.2 mmHgAVA Mean Randal. Index1.63 cm2/m2 LVOT Mean Grad 2.7 mmHg LVOT VTI0.242 m LVOT Diam s 1.85 cm AoV Vmax1.32 m/s Velocity Ratio 0.86 AoV Mean Randal.0.89 m/s AoV Peak Grad7.0 mmHg LVOT SV 66.42 mL AoV Mean Grad3.5 mmHg AoV VTI0.246 m AoV Area VTI2.70 cm2 AoV Area/ BSA (VTI)1.83 cm/m2 Mitral Valve MV DT 272 (160-240 msec) MV PHT79 msec MV Area PHT 2.79 cm2 Tricuspid Valve TR Peak Grad 19.0 mmHgTR Vmax 2.18 m/s RA Pressure 3.00 mmHg RVSP (TR) 22.0 mmHg Ordered By: Suresh Montenegro CC: Dictated By: Negin Whitfield M.D. 10/09/22 [id number] <Electronically signed by Negin Whitfield M.D. in [place]> 10/09/22 1251 Transcribed By: Negin Whitfield MD This is privileged, confidential information intended only for the provider named. Any use or distribution by any person other than this provider is strictly prohibited. If you receive this report in error, please notify us immediately at [phone] and return the original report to us at the address above. Thank-you. Anesthesia Assessment and Plan Anesthesia History Personal History: No History of Anesthesia Complications Family History: No Family History of Anesthesia Complications Exercise Tolerance Exercise Tolerance: Metabolic Equivalents>4 Pertinent Negatives Pertinent Negatives: No Symptoms of GERD Cardiac & Pulmonary Exam Cardiac Exam: Normal S1/S2 Heart Sounds Pulmonary Exam: Clear Bilateral Breath Sounds Implantable Cardiac Device Does patient have a Pacemaker or an ICD?: No Airway Exam Known Difficult Airway: No Mallampati Class: 2 Mouth Opening: Normal (> 3cm) Thyromental Distance: Greater than 3 cm Neck Range of Motion: Full ROM Neck Circumference: Normal Teeth Condition: Normal Dentition (normal wear and tear) Airway Comments: #12 “fake” ASA Classification ASA Score: ASA 2 Emergency Case?: No NPO Status NPO Status: NPO Clears >2 hours, Solids >8 hours Anesthesia Plan Resuscitation Status: Full Code Anesthesia Technique: General Anesthesia Airway Planned: Endotracheal Tube Monitors Used: Standard Monitors and SedLine Preoperative Comments:: Advised by Dr. 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 Pt confirms that she has weakness with abduction and external rotation of right arm. She also describes pain in the area of the above described muscles. Pt given risk/benefits of interscalene plexus block with suprascapular nerve originating at C5. Pt has elected to not have nerve block nor rescue block and have GETA with alternate pain management. Georgina Alva, [employer]
[2025-04-19] MEDS: ceFAZolin 2 GM/50 ML BAG IVPB (13:15)
[2025-04-19] MEDS: TRANEXAMIC ACID/SOD. CHL. 1,000 MG/100 ML BAG 600 MG IVPB (13:33)
[2025-04-19] MEDS: Bupivacaine 0.25% Pres-Free W/EPI 30 ML VIAL (14:07)
[2025-04-19] MEDS: fentaNYL 100 MCG/2 ML VIAL IVP ×2 (15:42→15:48)
--- NOTE | 2025-04-19 15:46 | W.ANESPOSTOP ---
Postoperative Evaluation Date, Time and Location Date Performed: 04/19/25 Time Performed: 15:46 Patient Location: PACU Vital Signs Most Recent Imported Vital Signs: Most Recent Vital Signs Temp Pulse Resp BP Pulse Ox 36.4 C L 84 15 143/93 H 97 04/19/25 15:40 04/19/25 15:42 04/19/25 15:40 04/19/25 15:42 04/19/25 15:42 Pain Score Most Recent Pain Score: Most Recent Pain Score Pain Level 5 04/19/25 15:40 Assessment Mental Status: Arousable with meaningful communication Airway and Respiratory Function: Patent airway with normal (patient baseline) respiratory exam Cardiovascular Function: Hemodynamically Stable Hydration Status: Adequately Hydrated Nausea & Vomiting: No Nausea or Vomiting Pain: Pain is Moderate or Severe Postoperative Pain Management: Pain being addressed with medication Peripheral Nerve Block: Patient did not receive a nerve block
[2025-04-19] MEDS: EPINEPHrine 10 MG/10 ML ML (15:49)
[2025-04-19] MEDS: HYDROmorphone 2 MG/ML SYR IVP ×3 (15:54→16:49)
[2025-04-19] MEDS: LORazepam 20 MG/10 ML VIAL IVP (16:28)
[2025-04-19] MEDS: oxyCODONE 5 MG TAB PO ×3 (16:38→20:06)
== END 2025-04-19 20:36 | disposition home or self-care (01) ==
LOC: MS 04-20 08:22
PROVIDERS: Admitting Provider Student in an Organized Health Care Education/Training Program; PCP Nurse Practitioner Family; Visit Provider Student in an Organized Health Care Education/Training Program
PROC: (CPT 29827; principal; 2025-04-19 14:00)
DX: S43.431A Superior glenoid labrum lesion of right shoulder, initial encounter (principal); M75.111 Incomplete rotator cuff tear or rupture of right shoulder, not specified as traumatic; S46.111A Strain of muscle, fascia and tendon of long head of biceps, right arm, initial encounter; M25.811 Other specified joint disorders, right shoulder; X58.XXXA Exposure to other specified factors, initial encounter; K58.0 Irritable bowel syndrome with diarrhea; E78.5 Hyperlipidemia, unspecified; E55.9 Vitamin D deficiency, unspecified; E03.9 Hypothyroidism, unspecified; F41.9 Anxiety disorder, unspecified; N95.2 Postmenopausal atrophic vaginitis; Z79.899 Other long term (current) drug therapy; G43.009 Migraine without aura, not intractable, without status migrainosus
CPT/HCPCS: 29827; 29828; 29807; 29823; G0378; J0131; J0665; J0666; J0690; J1100; J1171; J1805; J1885; J2003; J2060; J2250; J2371; J2405; J2704; J3010

== ENCOUNTER → 2025-04-26 13:29 | Outpatient (BNVA) | payer MEDICARE, SELFPAY | PROVIDERS: PCP Nurse Practitioner Family; Referring Provider Nurse Practitioner Family; Visit Provider Student in an Organized Health Care Education/Training Program | DX: Z47.89 Encounter for other orthopedic aftercare (principal); M75.101 Unspecified rotator cuff tear or rupture of right shoulder, not specified as traumatic; S43.431D Superior glenoid labrum lesion of right shoulder, subsequent encounter; M67.921 Unspecified disorder of synovium and tendon, right upper arm; X58.XXXD Exposure to other specified factors, subsequent encounter | CPT/HCPCS: 99024 ==

== ENCOUNTER → 2025-05-01 13:30 | Outpatient (BNVA) | payer MEDICARE, SELFPAY | PROVIDERS: PCP Nurse Practitioner Family; Referring Provider Nurse Practitioner Family; Visit Provider Student in an Organized Health Care Education/Training Program | DX: Z47.89 Encounter for other orthopedic aftercare (principal); M75.101 Unspecified rotator cuff tear or rupture of right shoulder, not specified as traumatic; M67.921 Unspecified disorder of synovium and tendon, right upper arm; S43.431D Superior glenoid labrum lesion of right shoulder, subsequent encounter; X58.XXXD Exposure to other specified factors, subsequent encounter | CPT/HCPCS: 99024 ==

== ENCOUNTER → 2025-05-10 10:13 | Outpatient (CLI) | payer MEDICARE, SELFPAY ==
--- NOTE | 2025-05-10 14:30 | DI.MRI_ITS ---
Exam(s) MR UPPER JOINT RT WO EXAM: MR UPPER JOINT RT WO CLINICAL HISTORY: post op pain, slipped on stairs G89.18 ACUTE POST OP PAIN TECHNIQUE: Multiplanar multisequence MRI of the shoulder was performed. COMPARISON: CR XR SHOULDER RT COMPLETE 2+V from 02/20/2025 MR MR UPPER JOINT RT WO from 03/16/2025 FINDINGS: MARROW:There is evidence of interval surgery comprised of subscapularis repair, biceps tenodesis, SLAP labral repair, and paralabral cyst decompression. There is some postop intra osseous edema around the fastener device in the lesser tuberosity region. There are no fracture lines.. There is no signal abnormality in the osseous glenoid nor in the coracoid process. GLENOHUMERAL JOINT: There is a small-moderate size glenohumeral joint effusion. There are no loose intra-articular bodies there is also fluid in the subacromial-subdeltoid bursa space, probably related to the recent surgery/decompression in this space. Small degenerative subarticular cysts are again noted in the posterolateral aspect of the humeral head subjacent to the infraspinatus tendon insertion site. There are no prominent chondral defects, loose intra-articular bodies, and there are no osteophytes. There are no degenerative subarticular cysts in the osseous glenoid. ROTATOR CUFF MECHANISM: AC JOINT/ACROMIUM: There are mild degenerative changes again noted in the acromioclavicular joint.. There is no evidence of os acromiale. Supraspinatus: There is increased signal abnormality in the most anterior aspect of the supraspinatus tendon and there is partial invagination of fluid signal at this level. This is somewhat difficult to assess accurately in the postop. There is no retraction of the musculotendinous junction. Infraspinatus: Tendon is intact. Atrophy of the muscle belly is again noted. Teres Minor: Intact. No evidence of tear nor muscle atrophy. Subscapularis/anterior cuff: There has been surgical repair at the level of the superior aspect of the multipennate fibers of the tendon with a combined biceps tenodesis at this site. The biceps tenodesis is intact. BICEPS TENDON: There has been interval biceps tenodesis at the anterior humeral head level. This appears intact. There is no displacement of the biceps tendon from the intertubercular groove. LABRUM: Anterior superior labral anchor is noted. No obvious new labral tear and the previously present paralabral cyst has been decompressed/no longer seen. IMPRESSION: 1. Compared to the prior MRI scan of 03/16/2025 there are now postsurgical changes from interval SLAP labral tear, paralabral cyst decompression, subscapularis repair and biceps tenodesis. 2. There is increased fluid in the subacromial-subdeltoid space which is commonly seen postoperative decompression surgery of this space. Also small amount of increased postop joint fluid. There are no loose intra-articular bodies. DATA REPOSITORY:
== END ==
LOC: DI 10:19
PROVIDERS: PCP Nurse Practitioner Family; Visit Provider Student in an Organized Health Care Education/Training Program
DX: G89.18 Other acute postprocedural pain (principal)
CPT/HCPCS: 73221

== ENCOUNTER → 2025-05-22 14:00 | Outpatient (BNVA) | payer MEDICARE, SELFPAY | PROVIDERS: PCP Nurse Practitioner Family; Referring Provider Nurse Practitioner Family; Visit Provider Student in an Organized Health Care Education/Training Program | DX: Z47.89 Encounter for other orthopedic aftercare (principal); S43.431D Superior glenoid labrum lesion of right shoulder, subsequent encounter; W10.9XXD Fall (on) (from) unspecified stairs and steps, subsequent encounter; M75.101 Unspecified rotator cuff tear or rupture of right shoulder, not specified as traumatic; M67.921 Unspecified disorder of synovium and tendon, right upper arm | CPT/HCPCS: 99213 ==